=== PATIENT | male | born 1945 | race Caucasian/White ===

== ENCOUNTER 2022-03-02 09:25 | Inpatient (IN) ==
[2022-03-02] MEDS ORDERED: 0.9 % SODIUM CHLORIDE 1,000 ML IV ONE (10:31)
[2022-03-02 10:53] LABS: POC Calcium, Ionized 1.23 (1.16-1.32); POC Creatinine 1.6 (0.6-1.2); POC Potassium 4.2 (3.3-5.1)
--- NOTE | 2022-03-02 10:53 | XRay Report ---
INDICATION: sepsis TECHNIQUE: AP portable upright chest x-ray COMPARISON: Previous chest x-ray dated 04/23/2021 FINDINGS: Lungs:Right basilar pulmonary parenchymal infiltrate consistent with pneumonia. Follow-up radiographs recommended. Left lung is negative Heart, vascular:No significant cardiomegaly. Pulmonary vascularity is normal. No pulmonary edema or pulmonary congestion Mediastinum, clarke:No mediastinal widening. No hilar mass Pleura:No pleural fluid. No pleural-based mass or calcification Skeletal:Elevation of the right humeral head consistent with rotator cuff degeneration IMPRESSION: 1. Right basilar pulmonary parenchymal infiltrate consistent with pneumonia 2. Follow-up chest x-rays recommended Interpreted and Authenticated by: Dionicio Lofton 03/02/22
[2022-03-02] MEDS ORDERED: cefTRIAXone 1 GM VIAL IV ONE (10:55)
[2022-03-02] MEDS ORDERED: AZITHROMYCIN 250 MG TABLET PO ONE (10:56)
[2022-03-02 11:50] LABS: Basophils # (Auto) 0.03 K/mcL (0.00-0.30); Basophils % (Auto) 0.2 % (0.0-2.0); Eosinophils # (Auto) 0.01 K/mcL (0.00-0.70); Eosinophils % (Auto) 0.1 % (0.0-7.0); Hematocrit 34.2 % (40.1-51.0); Hemoglobin 12.1 g/dL (13.7-17.5); Lymphocytes # (Auto) 0.96 K/mcL (1.50-4.80); Lymphocytes % (Auto) 7.5 % (15.5-49.0); Mean Cell Volume 92.2 fL (80.0-100.0); Mean Corpuscular HGB Conc 35.4 g/dL (31.0-36.0); Mean Platelet Volume 9.2 fL (8.8-12.5); Monocytes # (Auto) 1.34 K/mcL (0.10-0.90); Monocytes % (Auto) 10.4 % (1.0-12.0); Neutrophils % (Auto) 79.7 % (38.0-78.0); Platelet Count 220 K/mcL (140-440); RBC 3.71 M/mcL (4.63-6.08); Red Cell Distribution Width 12.3 % (11.5-14.5); WBC 12.8 K/mcL (4.5-11.0)
--- NOTE | 2022-03-02 12:01 | Emergency Department Note ---
HPI General Chief complaint: Cold/Flu Symptoms Stated complaint: cold/flu sx Time Seen by Provider: 03/02/22 10:29 Source: patient and family Mode of arrival: wheelchair Limitations: no limitations History of Present Illness HPI Narrative: 76-year-old male patient with history of chronic UTIs and ileal conduit with ostomy bag for bladder cancer, COPD, T2DM, chronic low back pain, depression, lower extremity neuropathy presents for 4 days of weakness and cough. His influenza and COVID swabs are negative here today. Patient's also notes that he has had worsening chronic low back pain. He is taking gabapentin and hydrocodone for this, but it is not helpful. He was seen in [facility] care on 02/24 for suicidal ideations related to uncontrolled pain. He had to be evaluated at [facility] ER. He states he is currently not feeling suicidal now, but is very discouraged because of his pain. He also notes that he has had a 60-70lb pound weight loss over the past few months that has been unintentional. He does have some concerns for return of his bladder cancer. There was a CT scan on 12/05/2021 without evidence of new masses or metastases. The patient has been on multiple antibiotics for his chronic UTIs and has a history of C. difficile colitis. He currently is not endorsing excessive stooling now. He is not on antibiotics currently. He does have some mild abdominal pain associated with his ostomy. Patient has COPD at baseline is on multiple inhalers. He states that he has a chronic cough but it has worsened over the last few days. He has had virtually no appetite since . Previous urine culture data with Pseudomonas UTI on 12/11 sensitive to fluoroquinolones, E. coli on 12/25 resistant to fluoroquinolones. Related Data Home Medications Medication Instructions Recorded Confirmed insulin NPH isoph U-100 human 100 10 unit subcut BID 09/04/21 01/19/22 unit/mL (3 mL) subcutaneous pen (Novolin N Flexpen) Previous Rx's Medication Instructions Recorded pregabalin 50 mg capsule (Lyrica) 50 mg PO TID #21 caps 12/08/21 hydrocodone 7.5 mg-acetaminophen 1 tab PO Q8H PRN pain #30 tabs 12/25/21 325 mg tablet methocarbamol 500 mg tablet 500 mg PO Q6H PRN pain #30 tabs 01/19/22 Allergies Allergy/AdvReac Type Severity Reaction Status Date / Time aspirin Allergy Unknown Gastrointestinal Verified 12/08/21 10:02 hemorrhage atorvastatin Allergy Unknown Muscle Pain Verified 12/08/21 10:02 simvastatin Allergy Unknown Muscle pain Verified 12/08/21 10:02 ciprofloxacin AdvReac Intermediate myalgia Verified 12/08/21 10:02 Penicillins AdvReac Intermediate Rash Verified 12/08/21 10:02 Review of Systems ROS ROS Narrative: Narrative: All systems ED: reviewed and negative except as stated. [facility] Narrative Patient History Narrative: Narrative: Medical/Surgical/Family History All Active Problems (Updated 03/02/22 @ 13:07 by Nelly Macedo PA-C) Community acquired pneumonia (Acute) Medication requested (Acute) Chronic UTI (Acute) Back pain (Acute) Neural foraminal stenosis of lumbar spine (Acute) UTI (urinary tract infection) due to urinary indwelling catheter (Acute) Hypertension (Chronic) Emphysema lung (Chronic) Chronic pain (Chronic) Other low back pain (Chronic) Lumbar stenosis with neurogenic claudication (Chronic) Depression (Chronic) Anxiety (Chronic) Mixed hyperlipidemia (Chronic) Supraventricular tachycardia (Chronic) Obesity (Chronic) Neuropathy of both feet (Chronic) Malignant neoplasm of posterior wall of urinary bladder (Chronic) Inguinal hernia (Chronic) Elevated IOP (Chronic) 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) Chest pain on exertion (Chronic) Adenomatous polyp of colon (Chronic) Drug related polyneuropathy (Chronic) Chronic lumbar pain (Chronic) Hyperlipidemia (Chronic) COPD (chronic obstructive pulmonary disease) (Chronic) Benign essential hypertension (Chronic) Vertebrogenic low back pain (Chronic) Acute UTI (Chronic) Medical History Acute UTI Adenomatous polyp of colon Anxiety Benign essential hypertension Chest pain on exertion Chronic lumbar pain Chronic pain Combined form of senile cataract COPD (chronic obstructive pulmonary disease) Depression 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 Drug related polyneuropathy Elevated IOP Emphysema lung Hyperlipidemia Hypertension Inguinal hernia Lumbar stenosis with neurogenic claudication Malignant neoplasm of posterior wall of urinary bladder Mixed hyperlipidemia Neuropathy of both feet Obesity Other low back pain Supraventricular tachycardia Vertebrogenic low back pain Surgical History History of colonoscopy 02/13/16, 03/21/10 History of prostate surgery (~01/01/17) Artificial opening History of repair of inguinal hernia (~07/25/10) History of surgery (~06/14/17) removal of tunneled central venous catheter without subcutaneous port or pump-01/28/17 History of surgery (~06/03/17) Bypass Bilateral ureters to lleocutaneous endoscopic approach, Resection of bladder, Resection of pelvis lymphatic, Resection of prostate, Robotic Assisted procedure of trunk region History of surgery (~01/01/17) cytourethroscopy-12/17/16 Family History Nephew Diabetes Niece Diabetes Sister Diabetes Mother Stroke Father Alcohol abuse Social History Smoking Status: Former smoker and Never smoker Alcohol Intake Frequency: holiday/special occasion only Substance Use: former substance user and marijuana Exam Narrative Narrative: General: AOx3, NAD, nontoxic appearing. Pleasant and conversant. HEENT: PERRL, EOMI, normocephalic. Dry mucous membranes. Normal facies and normal dentition. Chest: Symmetric, no pain to palpation Respiratory: Lungs are rhonchorous throughout. No wheezes. No respiratory distress. Unlabored breathing. Heart: Regular rate and rhythm, no murmurs/clicks/rubs. Abdomen: Mild right lower quadrant discomfort, nondistended, abdomen is soft. Ostomy bag with mucus and rodri hematuria. Extremities: Warm and well perfused. No edema. DP 2+ bilaterally. No venous stasis. Neuro: No focal deficits. Cranial nerves II-XII grossly normal. Skin: Warm dry, no rashes or lesions, no cyanosis. Psych: Normal mood and affect Heme/Lymph: No abnormal bruising General Limitations: no limitations Course Course Course Narrative: 76-year-old male presents with weakness and worsening cough Reevaluation(s) Reevaluation #1: Obtain basic labs, chest x-ray, lactic acid, UA, blood cultures Reevaluation #2: Chest x-ray with right basilar infiltrate. CBC with a white count of 12,800 ne utrophil count of 10.22. Sodium is 128. Creatinine is up to 1.6 from baseline of 1.3. Patient has been given IV ceftriaxone and oral azithromycin. Of also given 1 L of fluids for his tachycardia. Vital Signs Vital signs: Vital Signs Temperature 98.0 F 03/02/22 09:28 Pulse Rate 125 H 03/02/22 09:28 Respiratory Rate 17 03/02/22 09:28 Blood Pressure 99/59 03/02/22 09:28 Pulse Oximetry (%) 92 03/02/22 09:28 Oxygen Delivery Method 03/02/22 09:28 Temperature 98.0 F 03/02/22 09:28 Pulse Rate 95 H 03/02/22 13:02 Respiratory Rate 23 H 03/02/22 13:02 Blood Pressure 99/59 03/02/22 09:28 Pulse Oximetry (%) 93 03/02/22 13:02 Oxygen Delivery Method 03/02/22 09:28 MDM MDM Narrative Medical decision making narrative: Community-acquired pneumonia Possible UTI Curb 65 score is 2 and he does meet SIRS criteria. He has evidence of a right basilar infiltrate. His COVID and influenza swabs are negative. He has been started on IV ceftriaxone and 500 mg oral azithromycin. Urinalysis is currently pending. At this point I believe he needs to be admitted for further management and IV antibiotics. He will need case management to evaluate for home caregiving needs when they are available tomorrow. The patient has been accepted by Dr. Coates for admission. Lab Data Result diagrams: 03/02/22 10:45 Labs: Lab Results 03/02/22 03/02/22 03/02/22 Range/Units 10:45 10:48 11:19 WBC 12.8 H (4.5-11.0) K/mcL RBC 3.71 L (4.63-6.08) M/mcL Hgb 12.1 L (13.7-17.5) g/dL Hct 34.2 L (40.1-51.0) % POC Hct 35.0 L (41-55) MCV 92.2 (80.0-100.0) fL MCH 32.6 (26.0-34.0) pg MCHC 35.4 (31.0-36.0) g/dL RDW 12.3 (11.5-14.5) % Plt Count 220 (140-440) K/mcL MPV 9.2 (8.8-12.5) fL Immature Gran % (Auto) 2.1 H (0.0-0.5) % Neut % (Auto) 79.7 H (38.0-78.0) % Lymph % (Auto) 7.5 L (15.5-49.0) % [place] % (Auto) 10.4 (1.0-12.0) % Eos % (Auto) 0.1 (0.0-7.0) % Baso % (Auto) 0.2 (0.0-2.0) % Lymph # (Auto) 0.96 L (1.50-4.80) K/mcL [place] # (Auto) 1.34 H (0.10-0.90) K/mcL Eos # (Auto) 0.01 (0.00-0.70) K/mcL Baso # (Auto) 0.03 (0.00-0.30) K/mcL Immature Gran # 0.27 H (0.00-0.05) K/mcl Absolute Neutrophils 10.22 H (1.80-8.00) K/mcL POC Sodium 128 L (133-145) POC Potassium 4.2 (3.3-5.1) POC Chloride 95 L (96-108) POC Total CO2 24.0 (22-30) POC BUN 32 H (6-20) POC Creatinine 1.6 H (0.6-1.2) POC Glucose 184 H (70-105) POC WB Ioniz Calcium 1.23 (1.16-1.32) Urine Color Dk. yellow Urine Appearance Cloudy A (Clear) Urine pH 6.0 (5.0-9.0) Ur Specific [place] 1.010 (1.000-1.035) Urine Protein Trace A (Negative) mg/dL Urine Glucose (UA) Negative (Negative) mg/dL Urine Ketones Trace A (Negative) mg/dL Urine Occult Blood Negative (Negative) ania/mcL Urine Nitrate Negative (Negative) Urine Bilirubin Negative (Negative) mg/dL Urine Urobilinogen Normal mg/dL Ur Leukocyte Esterase Negative (Negative) /uL Urine RBC 3 (0-3) /hpf Urine WBC 29 H (0-4) /hpf Ur Squamous Epith Cells 0 (0-4) /hpf Urine Bacteria Many A (0) /hpf Urine Mucus Few A (None) /hpf Ur Culture Indicated? yes ED POC Tests ED POC Tests: WILMER - Influenza A Negative WILMER - Influenza B Negative WILMER - SARS Antigen Negative Discharge Plan Patient/Caregiver Discharge Instructions Pt seen by MACHINE COREMAKER/PA only: Yes Clinical Impression: Community acquired pneumonia Patient Disposition: Xfer As Inpt ([facility]) Follow up with: Lorenzo Ruffin ARNP [Primary Care Provider] - Prescriptions: No Action Novolin N Flexpen 100 unit/mL (3 mL) insulin pen 10 unit subcut BID methocarbamol 500 mg tablet 500 mg PO Q6H PRN (Reason: pain) Qty: 30 0RF Rx Instructions: May take half tab if drowsiness occurs or only at night time. pregabalin [Lyrica] 50 mg capsule 50 mg PO TID Qty: 21 0RF hydrocodone-acetaminophen 7.5-325 mg tablet 1 tab PO Q8H PRN (Reason: pain) Qty: 30 0RF
[2022-03-02 12:59] LABS: Appearance,Urine CLOUDY (Clear); Bacteria,Urine MANY /hpf (0); Bilirubin,Urine Negative (Negative); Color,Urine DK. YELLOW; Culture Indicated,Urine yes; Glucose,Urine (UA) NEGATIVE (Negative); Ketones,Urine TRACE mg/dL (Negative); Leukocyte Esterase,Urine NEGATIVE /uL (Negative); Mucus,Urine FEW /hpf; Nitrate,Urine NEGATIVE (Negative); Protein,Urine TRACE mg/dL (Negative); Urine Blood NEGATIVE ery/mcL (Negative); Urine RBC 3 /hpf (0-3); Urine Squamous Epithelial Cell 0 /hpf (0-4); Urine WBC 29 /hpf (0-4); Urobilinogen,Urine Normal
--- NOTE | 2022-03-02 13:58 | Internal Med History&Physical ---
HPI History of Present Illness Patient information: Note initiated : 03/02/22 at 1:48 pm Service Date, if different from initiated Date: [] Patient: Contreras Mccloud 76 y/o M admitted on for cold/flu sx. Chief Complaint: [shortness of breath, weakness, weight loss, suprapubic abdominal pain, shaking chills] Chief complaint: shortness of breath, weakness, weight loss, suprapubic abdominal pain, bria History of present illness: Mr. Mccloud is a 76 year old M history of bladder cancer status post cystectomy and ileal conduit, COPD, type 2 diabetes mellitus, recurrent UTI, essential hypertension, presenting with 5-day history of general weakness, loss of appetite, nausea with vomiting, suprapubic abdominal pain, shortness of breath, productive cough with davey and green sputum productions, and shaking chills. Moreover, he is complaining of 60 pounds weight loss over the 3 years. He has not been follow-up with oncology since the diagnosis of his bladder cancer 3 years ago. Over the past 5 days, he is complain of worsening of general weakness, loss of appetite, nausea with vomiting, shortness of breath with productive cough with davey and green sputum productions, shaking chills, and suprapubic abdominal pain currently graded at 3 out of 10 burning and constant. Vital signs significant for tachycardia and tachypnea. Labs significant for leukocytosis with WBC 12.8. Sodium level 128. Serum creatinine level 1.6. UA does not suggest the presence of urinary tract infections. Chest x-ray showing right basilar pulmonary parenchymal infiltrate consistent with pneumonia. Admission request was called for sepsis associated with pneumonia as well as for the investigations of weight loss/ failure to thrive. Constitutional Constitutional: Present chills, weakness and weight loss; Absent excessive sweating, fatigue or fever(s) EENT Eyes: Absent blurry vision, change in vision, loss of vision or other visual disturbances Ears: Absent decreased hearing or tinnitus Nose, mouth and throat: Absent abnormal hearing, dry mouth, headache(s), nasal congestion or sore throat Cardiovascular Cardiovascular: Absent chest pain, chest pain at rest, edema, irregular heart rhythm or palpatations Respiratory Respiratory: Present cough, dyspnea and excessive phlegm production; Absent wheezing Gastrointestinal Gastrointestinal: Present abdominal pain, nausea and vomiting; Absent constipation or diarrhea Musculoskeletal Musculoskeletal: Absent back pain, deformity, limited range of motion, muscle cramps, muscle weakness or numbness Integumentary Integumentary: Absent lesions, rash or wounds Neurological Neurological: Absent focal weakness, headache(s) or numbness Psychiatric Psychiatric: Absent anxiety, depression or hallucinations PFSH PFSH All Active Problems (Updated 03/02/22 @ 13:57 by Flaco Coates MD) Stage 1 acute kidney injury (Acute) T2DM (type 2 diabetes mellitus) (Acute) Adult failure to thrive (Acute) Community acquired pneumonia (Acute) Medication requested (Acute) Chronic UTI (Acute) Back pain (Acute) Neural foraminal stenosis of lumbar spine (Acute) UTI (urinary tract infection) due to urinary indwelling catheter (Acute) Hypertension (Chronic) Emphysema lung (Chronic) Chronic pain (Chronic) Other low back pain (Chronic) Lumbar stenosis with neurogenic claudication (Chronic) Depression (Chronic) Anxiety (Chronic) Mixed hyperlipidemia (Chronic) Supraventricular tachycardia (Chronic) Obesity (Chronic) Neuropathy of both feet (Chronic) Malignant neoplasm of posterior wall of urinary bladder (Chronic) Inguinal hernia (Chronic) Elevated IOP (Chronic) 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) Chest pain on exertion (Chronic) Adenomatous polyp of colon (Chronic) Drug related polyneuropathy (Chronic) Chronic lumbar pain (Chronic) Hyperlipidemia (Chronic) COPD (chronic obstructive pulmonary disease) (Chronic) Benign essential hypertension (Chronic) Vertebrogenic low back pain (Chronic) Acute UTI (Chronic) Medical History Acute UTI Adenomatous polyp of colon Anxiety Benign essential hypertension Chest pain on exertion Chronic lumbar pain Chronic pain Combined form of senile cataract COPD (chronic obstructive pulmonary disease) Depression 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 Drug related polyneuropathy Elevated IOP Emphysema lung Hyperlipidemia Hypertension Inguinal hernia Lumbar stenosis with neurogenic claudication Malignant neoplasm of posterior wall of urinary bladder Mixed hyperlipidemia Neuropathy of both feet Obesity Other low back pain Supraventricular tachycardia Vertebrogenic low back pain Surgical History History of colonoscopy 02/13/16, 03/21/10 History of prostate surgery (~01/01/17) Artificial opening History of repair of inguinal hernia (~07/25/10) History of surgery (~06/14/17) removal of tunneled central venous catheter without subcutaneous port or pump-01/28/17 History of surgery (~06/03/17) Bypass Bilateral ureters to lleocutaneous endoscopic approach, Resection of b ladder, Resection of pelvis lymphatic, Resection of prostate, Robotic Assisted procedure of trunk region History of surgery (~01/01/17) cytourethroscopy-12/17/16 Family History Nephew Diabetes Niece Diabetes Sister Diabetes Mother Stroke Father Alcohol abuse Social History household members: alone housing: house marital status: education level: high school 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 smoking status: Former smoker and Never smoker alcohol intake frequency: holiday/special occasion only substance use type: former substance user and marijuana MEDS/ALLERGIES Home Medications and Allergies Home Medications Medication Instructions Recorded Confirmed Type insulin NPH isoph U-100 human 100 10 unit subcut BID 09/04/21 01/19/22 History unit/mL (3 mL) subcutaneous pen (Novolin N Flexpen) pregabalin 50 mg capsule (Lyrica) 50 mg PO TID #21 caps 12/08/21 01/19/22 Rx hydrocodone 7.5 mg-acetaminophen 1 tab PO Q8H PRN pain #30 tabs 12/25/21 01/19/22 Rx 325 mg tablet methocarbamol 500 mg tablet 500 mg PO Q6H PRN pain #30 tabs 01/19/22 01/19/22 Rx Allergies Allergy/AdvReac Type Severity Reaction Status Date / Time aspirin Allergy Unknown Gastrointestinal Verified 12/08/21 10:02 hemorrhage atorvastatin Allergy Unknown Muscle Pain Verified 12/08/21 10:02 simvastatin Allergy Unknown Muscle pain Verified 12/08/21 10:02 ciprofloxacin AdvReac Intermediate myalgia Verified 12/08/21 10:02 Penicillins AdvReac Intermediate Rash Verified 12/08/21 10:02 EXAM Constitutional Vitals: Temp Pulse Resp BP Pulse Ox O2 Del Method 36.7 C 114 H 15 116/71 93 03/02/22 09:28 03/02/22 13:16 03/02/22 13:16 03/02/22 13:16 03/02/22 13:16 03/02/22 09:28 General appearance: cooperative, mild distress and thin Exam: cachectic Head Head exam: Present atraumatic and normocephalic Eye Eye exam: Present EOMI and PERRL ENT ENT exam: Present mucous membranes moist, normal exam and normal external ear exam Neck Neck exam: Present normal inspection; Absent lymphadenopathy, tenderness or thyromegaly Respiratory Respiratory exam: Absent accessory muscle use, respiratory distress or wheezes Cardiovascular Cardiovascular exam: Present normal rate and rhythm; Absent JVD GI/Abdominal GI/Abdominal exam: Present normal bowel sounds, soft and tenderness; Absent organomegaly Additional comments: ileal conduit Rectal Rectal exam: Present deferred Additional comments: ileal conduit Extremities Exam Extremities exam: Present full ROM, normal capillary refill and normal inspection; Absent tenderness Neurological Exam Neurological exam: Present alert, CN II-XII intact and oriented X3; Absent motor sensory deficit Psychiatric Psychiatric exam: Present normal affect and normal mood; Absent anxious or depressed Skin Skin exam: Present dry and intact DATA Data Completed and Pending Labs: Labs from last 24 hours 03/02/22 03/02/22 03/02/22 11:19 10:48 10:45 WBC 12.8 H RBC 3.71 L Hgb 12.1 L Hct 34.2 L POC Hct 35.0 L MCV 92.2 MCH 32.6 MCHC 35.4 RDW 12.3 Plt Count 220 MPV 9.2 Immature Gran % (Auto) 2.1 H Neut % (Auto) 79.7 H Lymph % (Auto) 7.5 L [place] % (Auto) 10.4 Eos % (Auto) 0.1 Baso % (Auto) 0.2 Lymph # (Auto) 0.96 L [place] # (Auto) 1.34 H Eos # (Auto) 0.01 Baso # (Auto) 0.03 Immature Gran # 0.27 H Absolute Neutrophils 10.22 H POC Sodium 128 L POC Potassium 4.2 POC Chloride 95 L POC Total CO2 24.0 POC BUN 32 H POC Creatinine 1.6 H POC Glucose 184 H POC WB Ioniz Calcium 1.23 Urine Color Dk. yellow Urine Appearance Cloudy A Urine pH 6.0 Ur Specific [place] 1.010 Urine Protein Trace A Urine Glucose (UA) Negative Urine Ketones Trace A Urine Occult Blood Negative Urine Nitrate Negative Urine Bilirubin Negative Urine Urobilinogen Normal Ur Leukocyte Esterase Negative Urine RBC 3 Urine WBC 29 H Ur Squamous Epith Cells 0 Urine Bacteria Many A Urine Mucus Few A Ur Culture Indicated? yes A/P Assessment and plan (1) Adult failure to thrive: Status: Acute (2) Community acquired pneumonia: Status: Acute (3) Hypertension: Status: Chronic (4) Malignant neoplasm of posterior wall of urinary bladder: Status: Chronic (5) COPD (chronic obstructive pulmonary disease): Status: Chronic (6) T2DM (type 2 diabetes mellitus): Status: Acute (7) Stage 1 acute kidney injury: Status: Acute Narrative A/P Narrative: Assessment and Plans: 1. Pneumonia with sepsis: Inpatient med surg s/p IV fluid bolus given in the ED, to be followed by NS@100cc/hr Serial lactic acid Procalcitonin Cephein PCR Blood culture MRSA screening cbc w/ auto diff in the morning to trend WBC Supplemental oxygen therapy Due to history of recurrent UTI, will broaden antibiotics coverage with Vancomycin and Zosyn 2. Adult failure to thrive: DDx include malignancy, new versus unresolved bladder cancer Ideally would like to preformed whole-body CT with IV contrast but due to concurrent acute kidney injury, with deferred until kidney functions improved Front Desk Officer referral 3. h/o Essential hypertension: Currently normotensive, continue to monitor 4. h/o bladder cancer: Ideally would like to preformed whole-body CT with IV contrast but due to concurrent acute kidney injury, with deferred until kidney functions improved Outpatient oncology follow up indicated 5. Type 2 diabetes mellitus: HgA1c Hold any oral hypoglycemics Insulin NPH 10 unit BID Low dose Insulin Lispro SSI AC HS Accu Check AC HS Hypoglycemia protocol Diabetic diet 6. h/o COPD, stable: DuoNEB NEB PRN wheezing or shortness of breath 7. Stage 1 acute kidney disease: Avoid nephrotoxic agents s/p IV fluid bolus given in the ED, to be followed by NS@100cc/hr CMP in the morning to trend kidney functions GI ppx: not currently indicated DVT ppx: Heparin Code status: Full Prognosis: guarded Disposition: inpatient med surg; PT OT Time Spent With Patient Time: Total time spent is greater than 50% in coordination of care (as documented) at patient's floor/unit and/or counseling patient: Total time spent with greater than 50% in coordination of care (as documented) at patient's floor/unit and/or counseling patient:: 50 - 70 minutes
[2022-03-02] MEDS ORDERED: PIPERACILLIN SODIUM/TAZOBACTAM 3.375 GM in DEXTROSE 5% IN WATER 50 ML IV SCH (14:31)
[2022-03-02] MEDS ORDERED: traZODone HCL 50 MG TABLET PO PRN (14:31)
[2022-03-02] MEDS ORDERED: ONDANSETRON 4 MG/2 ML VIAL IV PRN (14:31)
[2022-03-02] MEDS ORDERED: ACETAMINOPHEN 325 MG TABLET PO PRN (14:31)
[2022-03-02] MEDS ORDERED: DEXTROSE 50% 50 ML VIAL IV PRN (14:31)
[2022-03-02] MEDS ORDERED: VANCOMYCIN PER PHARMACY IV SCH (14:31)
[2022-03-02] MEDS ORDERED: IPRATROPIUM/ALBUTEROL 3 ML AMPUL.NEB NEB PRN (14:31)
[2022-03-02] MEDS ORDERED: DEXTROSE 31 GM ORAL.SUSP PO PRN (14:31)
[2022-03-02] MEDS: 0.9 % SODIUM CHLORIDE 1,000 ML IV SCH ×2 (15:20→23:50)
[2022-03-02] MEDS: VANCOMYCIN 1,500 MG in 0.9 % SODIUM CHLORIDE 500 ML IV SCH (15:20)
[2022-03-02] MEDS: 0.9 % SODIUM CHLORIDE 10 ML SYRINGE IV SCH ×2 (15:20→21:29)
[2022-03-02] MEDS: CEFEPIME 2 GM VIAL IV SCH ×2 (15:20→23:49)
[2022-03-02] MEDS: INSULIN LISPRO 1 UNIT/0.01 ML UNIT SQ SCH ×2 (17:07→20:10)
[2022-03-02 17:22] LABS: Estimated Average Glucose(eAG) 128 mg/dL; Hemoglobin A1C 6.1 % Hgb (4.0-6.0)
[2022-03-02] MEDS: morphine 4 MG/ML VIAL IV PRN (18:58)
[2022-03-02] MEDS: DOCUSATE SODIUM 100 MG CAPSULE PO SCH (19:58)
[2022-03-02] MEDS: SENNOSIDES 1 TABLET PO SCH (19:58)
[2022-03-02] MEDS: HEPARIN 5,000 UNIT/ML VIAL SQ SCH (19:59)
[2022-03-02] MEDS ORDERED: INSULIN NPH ISOPH U HUMAN SUB-Q SCH (21:00)
[2022-03-02] MEDS: PREGABALIN 25 MG CAPSULE PO SCH (21:23)
[2022-03-02] MEDS: HYDROCODONE/APAP 7.5/325MG TABLET PO PRN (21:27)
[2022-03-03] MEDS: 0.9 % SODIUM CHLORIDE 1,000 ML IV SCH ×3 (03:31→19:04)
[2022-03-03] MEDS: METHOCARBAMOL 500 MG TABLET PO PRN (03:36)
[2022-03-03] MEDS: 0.9 % SODIUM CHLORIDE 10 ML SYRINGE IV SCH ×3 (06:04→20:48)
[2022-03-03 07:37] LABS: Basophils # (Auto) 0.02 K/mcL (0.00-0.30); Basophils % (Auto) 0.2 % (0.0-2.0); Eosinophils # (Auto) 0.03 K/mcL (0.00-0.70); Eosinophils % (Auto) 0.3 % (0.0-7.0); Hematocrit 31.1 % (40.1-51.0); Hemoglobin 10.7 g/dL (13.7-17.5); Lymphocytes # (Auto) 0.85 K/mcL (1.50-4.80); Lymphocytes % (Auto) 8.3 % (15.5-49.0); Mean Cell Volume 93.7 fL (80.0-100.0); Mean Corpuscular HGB Conc 34.4 g/dL (31.0-36.0); Mean Platelet Volume 9.4 fL (8.8-12.5); Monocytes # (Auto) 0.84 K/mcL (0.10-0.90); Monocytes % (Auto) 8.2 % (1.0-12.0); Neutrophils % (Auto) 80.8 % (38.0-78.0); Platelet Count 208 K/mcL (140-440); RBC 3.32 M/mcL (4.63-6.08); Red Cell Distribution Width 12.1 % (11.5-14.5); WBC 10.2 K/mcL (4.5-11.0)
[2022-03-03 07:53] LABS: ALT/SGPT 7 U/L (<40); AST/SGOT 10 U/L (<40); Albumin 2.8 gm/dL (3.2-5.2); Albumin/Globulin Ratio 0.8 (1.0-2.3); Alkaline Phosphatase 93 U/L (39-117); Bilirubin,Total 0.7 mg/dL (0.1-1.0); Blood Urea Nitrogen 16 mg/dL (8-23); Calcium 8.8 mg/dL (8.6-10.4); Carbon Dioxide 20 mmol/L (22-30); Chloride 95 mmol/L (96-108); Globulin 3.3 gm/dL (2.2-3.7); Glomerular Filtration Rate 86; Glucose 119 mg/dL (70-105)
[2022-03-03] MEDS: INSULIN LISPRO 1 UNIT/0.01 ML UNIT SQ SCH ×4 (07:53→20:47)
[2022-03-03] MEDS: PREGABALIN 25 MG CAPSULE PO SCH ×3 (08:43→20:47)
[2022-03-03] MEDS: guaiFENesin/DEXTROMETHORPHAN ORAL SOL PO PRN (08:43)
[2022-03-03] MEDS: DOCUSATE SODIUM 100 MG CAPSULE PO SCH ×2 (08:43→20:46)
[2022-03-03] MEDS: HYDROCODONE/APAP 7.5/325MG TABLET PO PRN ×3 (08:44→22:29)
[2022-03-03] MEDS: HEPARIN 5,000 UNIT/ML VIAL SQ SCH ×2 (08:45→20:47)
[2022-03-03] MEDS: CEFEPIME 2 GM VIAL IV SCH ×2 (08:45→20:46)
[2022-03-03] MEDS: VANCOMYCIN 1,500 MG in 0.9 % SODIUM CHLORIDE 500 ML IV SCH (11:02)
--- NOTE | 2022-03-03 12:35 | Internal Med Progress Note ---
SUBJECTIVE Subjective Patient information: Note initiated : 03/03/22 at 12:27 pm Service Date, if different from initiated Date: [] Patient: Contreras Mccloud 76 y/o M admitted on 03/02/22 for cold/flu sx. Chief Complaint: [] Interval history: Mr. Mccloud is a 76 year old M history of bladder cancer status post cystectomy and ileal conduit, COPD, type 2 diabetes mellitus, recurrent UTI, essential hypertension, presenting with 5-day history of general weakness, loss of appetite, nausea with vomiting, suprapubic abdominal pain, shortness of breath, productive cough with davey and green sputum productions, and shaking chills. Moreover, he is complaining of 60 pounds weight loss over the 3 years. He has not been follow-up with oncology since the diagnosis of his bladder cancer 3 years ago. Over the past 5 days, he is complain of worsening of general weakness, loss of appetite, nausea with vomiting, shortness of breath with productive cough with davey and green sputum productions, shaking chills, and suprapubic abdominal pain currently graded at 3 out of 10 burning and constant. Vital signs significant for tachycardia and tachypnea. Labs significant for leukocytosis with WBC 12.8. Sodium level 128. Serum creatinine level 1.6. UA does not suggest the presence of urinary tract infections. Chest x-ray showing right basilar pulmonary parenchymal infiltrate consistent with pneumonia. Admission request was called for sepsis associated with pneumonia as well as for the investigations of weight loss/ failure to thrive. 03/03: COVID-negative. RSV positive. MRSA screening negative. Blood culture no growth today. Serum creatinine level improved from 1.6-0.8. Patient is on room air. Patient has poor appetite. He is also commenting of back pain. He denies any abdominal pain around the ileal conduit site. He denies any subjective fever chills or diaphoresis. DC vancomycin due to negative MRSA. Continue Zosyn while waiting for culture result. Since kidney functions normalized, will order whole-body CT with contr ast to look for any sign of malignancy contributing to the unintentional weight loss and overall weakness. We will keep the IV fluid running for now due to poor oral intake as well as CT study with IV contrast. Physical and occupational therapies evaluation and treatments. Constitutional Vitals: Vital Signs Temp Pulse Resp BP Pulse Ox O2 Del Method 36.9 C 113 H 20 116/66 94 03/03/22 08:00 03/03/22 08:00 03/03/22 08:00 03/03/22 08:00 03/03/22 08:00 03/03/22 08:00 Period Temp Pulse Resp BP Sys/Wilson Pulse Ox O2 Del Method O2 Flow Rate Last 24 Hr 36.5 C-37.2 C 91-121 15-24 104-150/65-84 91-96 Room Air-Room Air Intake and Output 03/03/22 03/03/22 03/03/22 03:59 11:59 19:59 Intake Total 1300 120 Output Total 625 200 Balance 675 -80 Intake & Output: Intake & Output 03/03/22 03/03/22 03/03/22 03:59 11:59 19:59 Intake Total 1300 120 Output Total 625 200 Balance 675 -80 Intake: IV 1000 Sodium Chloride 0.9% 1,000 ml @ 1000 100 mls/hr IV .Q10H [facility] Rx#: [id number] Oral 300 120 Output: Urine Catheter Amount 625 200 Other: Meal Breakfast Percent of Meal Consumed 50% Feeding Ability Assist with Tray Set Up Urine Appearance Cloudy Sediment Urine Color Yellow Light Trinh Urine Odor Foul Strong General appearance: cooperative, no acute distress and thin Head Head exam: Present atraumatic and normal inspection Eye Eye exam: Present normal appearance ENT ENT exam: Present mucous membranes moist, normal exam and normal external ear exam Neck Neck exam: Present normal inspection Respiratory Respiratory exam: Present normal respiratory exam Cardiovascular Cardiovascular exam: Present normal rate and rhythm GI/Abdominal GI/Abdominal exam: Present normal bowel sounds Additional comments: Ileal conduit in place Back Exam Back exam: Present normal inspection Neurological Exam Neurological exam: Present alert and oriented X3 Skin Skin exam: Present intact and warm OBJ DATA Labs CBC & Chem 7: 03/03/22 05:33 03/03/22 05:33 Labs: Abnormal Lab Results 03/03/22 03/03/22 03/02/22 05:33 05:33 15:01 WBC RBC 3.32 L Hgb 10.7 L Hct 31.1 L POC Hct Immature Gran % (Auto) 2.2 H Neut % (Auto) 80.8 H Lymph % (Auto) 8.3 L Lymph # (Auto) 0.85 L Pratt # (Auto) Immature Gran # 0.22 H Absolute Neutrophils 8.23 H POC Sodium Sodium 128 L POC Chloride Chloride 95 L Carbon Dioxide 20 L POC BUN POC Creatinine Glucose 119 H POC Glucose Hemoglobin A1c Albumin 2.8 L Albumin/Globulin Ratio 0.8 L Procalcitonin 0.52 H Urine Appearance Urine Protein Urine Ketones Urine WBC Urine Bacteria Urine Mucus 03/02/22 03/02/22 03/02/22 15:01 11:19 10:48 WBC RBC Hgb Hct POC Hct 35.0 L Immature Gran % (Auto) Neut % (Auto) Lymph % (Auto) Lymph # (Auto) Pratt # (Auto) Immature Gran # Absolute Neutrophils POC Sodium 128 L Sodium POC Chloride 95 L Chloride Carbon Dioxide POC BUN 32 H POC Creatinine 1.6 H Glucose POC Glucose 184 H Hemoglobin A1c 6.1 H Albumin Albumin/Globulin Ratio Procalcitonin Urine Appearance Cloudy A Urine Protein Trace A Urine Ketones Trace A Urine WBC 29 H Urine Bacteria Many A Urine Mucus Few A 03/02/22 10:45 WBC 12.8 H RBC 3.71 L Hgb 12.1 L Hct 34.2 L POC Hct Immature Gran % (Auto) 2.1 H Neut % (Auto) 79.7 H Lymph % (Auto) 7.5 L Lymph # (Auto) 0.96 L Pratt # (Auto) 1.34 H Immature Gran # 0.27 H Absolute Neutrophils 10.22 H POC Sodium Sodium POC Chloride Chloride Carbon Dioxide POC BUN POC Creatinine Glucose POC Glucose Hemoglobin A1c Albumin Albumin/Globulin Ratio Procalcitonin Urine Appearance Urine Protein Urine Ketones Urine WBC Urine Bacteria Urine Mucus Meds: Medications Acetaminophen (Acetaminophen 325 Mg Tablet) 650 mg PO Q6HP PRN; Protocol PRN Reason: Per Pain Protocol/Fever > 101 Last Admin: 03/02/22 19:58 Dose: 650 mg Hydrocodone Bitart/Acetaminophen (Hydrocodone/Apap 7.5/325mg Tablet) 1 tab PO Q8HP PRN PRN Reason: pain Last Admin: 03/03/22 08:44 Dose: 1 tab Albuterol/Ipratropium (Ipratropium/Albuterol 3 Ml Ampul.Neb) 3 ml NEB Q4HRT PRN PRN Reason: Wheezing Cefepime HCl (Cefepime 2 Gm Vial) 2 gm IV Q12H PRUDENCIO Last Admin: 03/03/22 08:45 Dose: 2 gm Dextrose (Dextrose 50% 50 Ml Vial) 0 ml IV UD PRN PRN Reason: Per Sliding Scale Diagnostic Test (Pha) (Accu-Chek 1 Each Strip) 1 each FS ACHS [facility] Last Admin: 03/03/22 07:47 Dose: 1 each Docusate Sodium (Docusate Sodium 100 Mg Capsule) 100 mg PO BID [facility] Last Admin: 03/03/22 08:43 Dose: 100 mg Glucose (Dextrose 31 Gm Oral.Susp) 15 gm PO PRN PRN PRN Reason: Hypoglycemia Guaifenesin (Guaifenesin/Dextromethorphan Oral Naomi) 10 ml PO Q4HP PRN PRN Reason: Cough Last Admin: 03/03/22 08:43 Dose: 10 ml Heparin Sodium (Porcine) (Heparin 5,000 Unit/Ml Vial) 5,000 unit SQ Q12 [facility] Last Admin: 03/03/22 08:45 Dose: 5,000 unit Sodium Chloride (Sodium Chloride 0.9%) 1,000 mls @ 100 mls/hr IV .Q10H [facility] Last Admin: 03/03/22 03:31 Dose: 100 mls/hr Insulin Human Lispro (Insulin Lispro 1 Unit/0.01 Ml Unit) 0 unit SQ [facility]; Protocol Last Admin: 03/03/22 07:53 Dose: 1 units Methocarbamol (Methocarbamol 500 Mg Tablet) 500 mg PO Q6HP PRN PRN Reason: pain Last Admin: 03/03/22 03:36 Dose: 500 mg Morphine Sulfate (Morphine 4 Mg/Ml Vial) 4 mg IV Q4HP PRN; Protocol PRN Reason: Per Pain Protocol Last Admin: 03/02/22 18:58 Dose: 4 mg Ondansetron HCl (Ondansetron 4 Mg/2 Ml Vial) 4 mg IV Q6HP PRN PRN Reason: Nausea And Vomiting Last Admin: 03/03/22 03:44 Dose: 4 mg Pregabalin (Pregabalin 25 Mg Capsule) 50 mg PO TID [facility] Last Admin: 03/03/22 08:43 Dose: 50 mg Senna (Sennosides 1 Tablet) 2 tab PO HS [facility] Last Admin: 03/02/22 19:58 Dose: 2 tab Sodium Chloride (0.9 % Sodium Chloride 10 Ml Syringe) 10 ml IV Q8 [facility] Last Admin: 03/03/22 06:04 Dose: Not Given Trazodone HCl (Trazodone Hcl 50 Mg Tablet) 25 mg PO HSP PRN PRN Reason: Insomnia A/P Assessment and plan (1) Adult failure to thrive: Status: Acute (2) Community acquired pneumonia: Status: Acute (3) Hypertension: Status: Chronic (4) Malignant neoplasm of posterior wall of urinary bladder: Status: Chronic (5) COPD (chronic obstructive pulmonary disease): Status: Chronic (6) T2DM (type 2 diabetes mellitus): Status: Acute (7) Stage 1 acute kidney injury: Status: Acute (8) RSV (respiratory syncytial virus infection): Status: Acute Narrative A/P Narrative: Assessment and Plans: 1. Pneumonia with sepsis: Inpatient med surg s/p IV fluid bolus given in the ED, to be followed by NS@100cc/hr Serial lactic acid 1.5 Procalcitonin 0.52 Cephein PCR: CoVID negative, RSV positive Blood culture, no growth to date MRSA screening negative, d/c vancomycin cbc w/ auto diff in the morning to trend WBC Supplemental oxygen therapy Continue Cefepime while monitoring for culture results 2. Adult failure to thrive: DDx include malignancy, new versus unresolved bladder cancer Whole-body CT with IV contrast [employer] referral 3. h/o Essential hypertension: Currently normotensive, continue to monitor 4. h/o bladder cancer: Whole-body CT with IV contrast Outpatient oncology follow up indicated 5. Type 2 diabetes mellitus: HgA1c 6.1 Hold any oral hypoglycemics d/c Insulin NPH Low dose Insulin Lispro SSI AC HS Accu Check AC HS Hypoglycemia protocol Diabetic diet 6. h/o COPD, stable: DuoNEB NEB PRN wheezing or shortness of breath 7. Stage 1 acute kidney disease: Kidney functions improved Avoid nephrotoxic agents s/p IV fluid bolus given in the ED, to be followed by NS@100cc/hr. Continue due to poor oral intake and ordered CT whole body with IV contrast CMP in the morning to trend kidney functions 8. RSV infection: Isolation: droplet Supplemental oxygen therapy GI ppx: not currently indicated DVT ppx: Lovenox Code status: Full Prognosis: guarded Disposition: inpatient med surg; PT OT Time Spent With Patient Time: Total time spent is greater than 50% in coordination of care (as documented) at patient's floor/unit and/or counseling patient: Total time spent with greater than 50% in coordination of care (as documented) at patient's floor/unit and/or counseling patient:: 25 - 35 minutes QUALITY Stroke Symptom Onset Unknown: No VTE Deep Vein Thrombosis/Pulmonary Embolism Present on Admission: No
[2022-03-03] MEDS ORDERED: IOPAMIDOL 100 ML BOTTLE IV ONE (13:06)
--- NOTE | 2022-03-03 13:38 | Cat Scan Report ---
INDICATION: cancer surveillance. History of bladder cancer. Weight loss and failure to thrive TECHNIQUE: Axial images through the brain. Sagittal and coronal reformatted images. Scans performed before and after 80 mL intravenous contrast material COMPARISON: None. FINDINGS: No focal intra-axial attenuation abnormalities. No intra-axial enhancement. No evidence for brain metastases. There is mild cerebral atrophy considered age appropriate. There are bilateral thalamic lacunar infarctions. Brainstem and cerebellum are negative. No focal intra-axial attenuation abnormalities. No pathologic contrast enhancement. No extra-axial, intracranial abnormalities. No extra-axial enhancement. No pathologic leptomeningeal or dural enhancement. No calvarial lesions. No lytic or sclerotic abnormalities. No evidence for osseous metastases. Temporal bones are within normal limits. There is inflammatory disease in the paranasal sinuses. There are air-fluid levels within both maxillary sinuses consistent with acute maxillary sinusitis. There is mucosal thickening within anterior and posterior ethmoid sinuses bilaterally. Frontal sinuses are negative IMPRESSION: 1. No intracranial metastases. No enhancing abnormality 2. No calvarial lesions 3. Sinusitis. Air-fluid levels within both maxillary sinuses. Interpreted and Authenticated by: Dionicio Lofton 03/03/22
--- NOTE | 2022-03-03 14:00 | Cat Scan Report ---
INDICATION: cancer surveillance. History of bladder cancer. Patient has undergone previous cystectomy and construction of ileal conduit COMPARISON: Previous abdominal and pelvic CT scans dated 12/05/2021, 09/16/2021. Previous chest x-ray dated 03/02/2022 TECHNIQUE: Axial images were obtained through the chest,abdomen and pelvis. Sagittally and coronally reformatted images. 80ml Isovue 370 injected intravenously. Oral contrast material was not administered FINDINGS: Chest CT: Lungs:Mild infiltrate in the left lower lobe is predominantly tree in bud in appearance. Appearance is consistent with acute infection. No parenchymal consolidation. There is no left lung mass. No evidence for metastasis. There is peribronchial thickening consistent with bronchitis. Extensive abnormality in the right lower lobe and mild abnormality in the right middle lobe. There is parenchymal infiltrate which is predominantly tree-in-bud and groundglass. Appearance is most consistent with infection. Appearance is considered atypical for metastasis from bladder cancer. Follow-up examination recommended. There is peribronchial thickening consistent with bronchitis. Mediastinum:Mild mediastinal adenopathy. Largest lymph node is pretracheal and measures 19 mm. There is central fat. This is probably physiological reactive. Bridgette are negative. No pathologic adenopathy. Heart:No significant cardiomegaly. No pericardial effusion. There is severe coronary artery calcification Pleura:No pleural fluid. No pleural-based mass. No pleural calcifications Axilla, supraclavicular regions, chest wall:No pathologic axillary or supraclavicular adenopathy Musculoskeletal:Mild compression deformity of the T7 vertebral body. No evidence for pathologic compression fracture. There are no lytic or sclerotic lesions within the thoracic spine. Sternum is negative. Ribs are negative. No sclerotic or lytic lesions. No evidence for osseous metastases. Shoulder girdles are unremarkable. Abdomen/Pelvis: Liver:Negative liver. No focal intrahepatic mass. Liver contour is smooth. There is no ascites Gallbladder, bilary:3 mm calcified gallstone in the gallbladder neck. No gallbladder wall thickening or pericholecystic fluid. No dilated bile ducts. This is unchanged Spleen:No splenomegaly. No focal intrasplenic abnormality. Normal enhancement of splenic and portal veins. Pancreas:No pancreatic mass. No peripancreatic abnormality Adrenal glands:Negative Kidneys,ureters,bladder:No solid renal mass. No hydronephrosis. No obstructing or nonobstructing calculi. Previous cystectomy. There is an ileal conduit with right lower quadrant ostomy. There is no hydroureter. Gastrointestinal:Distended rectum with prominent fecal material. There is prominent fecal material throughout the colon consistent with constipation There is no detectable colonic mass. No evidence for diverticulitis. Urinary diversion procedure with ileal conduit right lower quadrant ostomy. There is no mechanical small bowel obstruction. Stomach is moderately distended and fluid-filled Appendix: The appendix is negative Vascular:Abdominal aorta is calcified and tortuous. No abdominal aortic aneurysm Lymphatic:No pathologic adenopathy. No iliac chain or para-aortic adenopathy. No inguinal adenopathy. Mesentery, peritoneum:No free intraperitoneal fluid. No intra-abdominal abscess. There is no pathologic mesenteric adenopathy or peritoneal based metastasis Reproductive:No significant prosthetic enlargement Musculoskeletal:Multilevel degenerative disc disease. Severe degenerative disc narrowing at L1-2, L2-3, L3-4, L4-5. There is facet arthropathy at L3-4, L4-5, L5-S1. No acute compression fractures. No lytic or sclerotic lesions. No evidence for osseous metastases. Sacrum is negative. No metastatic lesion. Pelvis is negative. Hips are negative. There is no anterior abdominal wall or inguinal hernia IMPRESSION: 1. Predominantly right lower lobe and right middle lobe infiltrate consistent with infection. Appearance is atypical for metastatic disease. Follow-up examination recommended. 2. Coronary artery calcification 3. Cholelithiasis 4. Previous cystectomy. Urinary diversion with ileal conduit destruction in right lower quadrant ostomy. No hydronephrosis or hydroureter 5. No pathologic retroperitoneal adenopathy 6. Multilevel degenerative disc disease in the lumbar spine. Mild compression deformity of the T7 vertebral body. No detectable osseous metastases 7. Constipation The exam was performed using radiation dose optimization techniques including, but not limited to, automated exposure control, adjustment of the mA and/or kV according to patient size and use of iterative reconstruction technique. Interpreted and Authenticated by: Dionicio Lofton 03/03/22
[2022-03-03] MEDS: SENNOSIDES 1 TABLET PO SCH (20:46)
[2022-03-04] MEDS: morphine 4 MG/ML VIAL IV PRN ×2 (00:27→04:41)
[2022-03-04] MEDS: 0.9 % SODIUM CHLORIDE 1,000 ML IV SCH (04:40)
[2022-03-04] MEDS: 0.9 % SODIUM CHLORIDE 10 ML SYRINGE IV SCH ×3 (05:05→22:06)
[2022-03-04 06:54] LABS: Basophils # (Auto) 0.02 K/mcL (0.00-0.30); Basophils % (Auto) 0.3 % (0.0-2.0); Eosinophils # (Auto) 0.05 K/mcL (0.00-0.70); Eosinophils % (Auto) 0.7 % (0.0-7.0); Hematocrit 29.7 % (40.1-51.0); Hemoglobin 10.4 g/dL (13.7-17.5); Lymphocytes # (Auto) 0.92 K/mcL (1.50-4.80); Lymphocytes % (Auto) 13.2 % (15.5-49.0); Mean Cell Volume 92.2 fL (80.0-100.0); Mean Platelet Volume 9.3 fL (8.8-12.5); Monocytes % (Auto) 8.6 % (1.0-12.0); Neutrophils % (Auto) 73.6 % (38.0-78.0); Platelet Count 213 K/mcL (140-440); RBC 3.22 M/mcL (4.63-6.08)
[2022-03-04] MEDS: INSULIN LISPRO 1 UNIT/0.01 ML UNIT SQ SCH ×4 (07:22→22:05)
[2022-03-04] MEDS: guaiFENesin/DEXTROMETHORPHAN ORAL SOL PO PRN ×2 (07:31→11:47)
[2022-03-04] MEDS: HYDROCODONE/APAP 7.5/325MG TABLET PO PRN ×3 (07:43→22:03)
[2022-03-04] MEDS: PREGABALIN 25 MG CAPSULE PO SCH ×3 (08:47→22:03)
[2022-03-04] MEDS: HEPARIN 5,000 UNIT/ML VIAL SQ SCH (08:48)
[2022-03-04] MEDS: DOCUSATE SODIUM 100 MG CAPSULE PO SCH ×2 (08:48→22:05)
[2022-03-04] MEDS: CEFEPIME 2 GM VIAL IV SCH ×2 (09:53→22:05)
[2022-03-04] MEDS ORDERED: FLEETS ADULT ENEMA PR PRN (11:24)
[2022-03-04] MEDS ORDERED: BISACODYL 10 MG SUPP.RECT PR PRN (11:24)
[2022-03-04] MEDS ORDERED: POLYETHYLENE GLYCOL 3350 17 GM PACKET PO PRN (11:24)
--- NOTE | 2022-03-04 11:26 | Internal Med Progress Note ---
SUBJECTIVE Subjective Patient information: Note initiated : 03/04/22 at 11:16 am Service Date, if different from initiated Date: [] Patient: Contreras Mccloud 76 y/o M admitted on 03/02/22 for cold/flu sx. Chief Complaint: [] Interval history: Mr. Mccloud is a 76 year old M history of bladder cancer status post cystectomy and ileal conduit, COPD, type 2 diabetes mellitus, recurrent UTI, essential hypertension, presenting with 5-day history of general weakness, loss of appetite, nausea with vomiting, suprapubic abdominal pain, shortness of breath, productive cough with davey and green sputum productions, and shaking chills. Moreover, he is complaining of 60 pounds weight loss over the 3 years. He has not been follow-up with oncology since the diagnosis of his bladder cancer 3 years ago. Over the past 5 days, he is complain of worsening of general weakness, loss of appetite, nausea with vomiting, shortness of breath with productive cough with davey and green sputum productions, shaking chills, and suprapubic abdominal pain currently graded at 3 out of 10 burning and constant. Vital signs significant for tachycardia and tachypnea. Labs significant for leukocytosis with WBC 12.8. Sodium level 128. Serum creatinine level 1.6. UA does not suggest the presence of urinary tract infections. Chest x-ray showing right basilar pulmonary parenchymal infiltrate consistent with pneumonia. Admission request was called for sepsis associated with pneumonia as well as for the investigations of weight loss/ failure to thrive. 03/03: COVID-negative. RSV positive. MRSA screening negative. Blood culture no growth to date. Serum creatinine level improved from 1.6-0.8. Patient is on room air. Patient has poor appetite. He is also commenting of back pain. He denies any abdominal pain around the ileal conduit site. He denies any subjective fever chills or diaphoresis. DC vancomycin due to negative MRSA. Continue Zosyn while waiting for culture result. Since kidney functions normalized, will order whole-body CT with con trast to look for any sign of malignancy contributing to the unintentional weight loss and overall weakness. We will keep the IV fluid running for now due to poor oral intake as well as CT study with IV contrast. Physical and occupational therapies evaluation and treatments. 03/04: Afebrile overnight. Patient is on room air this morning. Blood culture no growth to date. Patient is NOT complaining of constipation, although he has only been passing gas but no BM. His appetite has been improving. He denies any abdominal pain around the ileal conduit site/ostomy site. He is c/o mild to mod erate pain pain at baseline level. Continue Zosyn while waiting for culture results. Saline lock the patient's. MiraLAX, Colace suppository, Fleet enema PRN constipation. Add Megace to promote appetite. Physical and occupational therapies evaluation and treatments. Constitutional Vitals: Vital Signs Temp Pulse Resp BP Pulse Ox O2 Del Method 36.8 C 96 H 22 122/70 97 03/04/22 07:36 03/04/22 07:36 03/04/22 07:36 03/04/22 07:36 03/04/22 07:36 03/04/22 07:36 Period Temp Pulse Resp BP Sys/Wilson Pulse Ox O2 Del Method O2 Flow Rate Last 24 Hr 36.5 C-37.0 C 96-112 20-22 109-153/70-88 97-99 Room Air-Room Air Intake and Output 03/03/22 03/04/22 03/04/22 19:59 03:59 11:59 Intake Total 2102 300 2500 Output Total 200 1050 1100 Balance 1902 -750 1400 Weight 81.193 kg 78.471 kg Intake & Output: Intake & Output 03/03/22 03/04/22 03/04/22 19:59 03:59 11:59 Intake Total 2102 300 2500 Output Total 200 1050 1100 Balance 1902 -750 1400 Weight 81.193 kg 78.471 kg Intake: IV 1502 1960 Sodium Chloride 0.9% 1,000 ml @ 1002 1960 100 mls/hr IV .Q10H [facility] Rx#: [id number] Vancomycin 1,500 mg In Sodium 500 Chloride 0.9% 500 ml @ 333.3 mls/hr IV Q24H [facility] Rx#: [id number] Oral 600 300 540 Output: Urine Catheter Amount 200 1050 1100 Other: Meal Dinner Breakfast Percent of Meal Consumed 50% 50% Feeding Ability Assist with Tray Set Up Independent Urine Appearance Clear Sediment Urostomy Sediment Sediment Urine Color Dark Yellow Bright Yellow Bright Yellow Urostomy Bright Yellow Bright Yellow Urine Odor Strong Strong Urostomy Strong Head Head exam: Present atraumatic and normal inspection Eye Eye exam: Present normal appearance ENT ENT exam: Present mucous membranes moist, normal exam and normal external ear exam Neck Neck exam: Present normal inspection Respiratory Respiratory exam: Present normal respiratory exam Cardiovascular Cardiovascular exam: Present normal rate and rhythm GI/Abdominal GI/Abdominal exam: Present normal bowel sounds Additional comments: ileal conduit and ostomy in place Additional comments: ileal conduit and ostomy in place Back Exam Back exam: Present normal inspection Neurological Exam Neurological exam: Present alert and oriented X3 Skin Skin exam: Present intact and warm OBJ DATA Labs CBC & Chem 7: 03/04/22 05:15 03/03/22 05:33 Labs: Abnormal Lab Results 03/04/22 03/03/22 03/03/22 05:15 05:33 05:33 WBC RBC 3.22 L 3.32 L Hgb 10.4 L 10.7 L Hct 29.7 L 31.1 L POC Hct Immature Gran % (Auto) 3.6 H 2.2 H Neut % (Auto) 80.8 H Lymph % (Auto) 13.2 L 8.3 L Lymph # (Auto) 0.92 L 0.85 L [place] # (Auto) Immature Gran # 0.25 H 0.22 H Absolute Neutrophils 8.23 H POC Sodium Sodium 128 L POC Chloride Chloride 95 L Carbon Dioxide 20 L POC BUN POC Creatinine Glucose 119 H POC Glucose Hemoglobin A1c Albumin 2.8 L Albumin/Globulin Ratio 0.8 L Procalcitonin Urine Appearance Urine Protein Urine Ketones Urine WBC Urine Bacteria Urine Mucus 03/02/22 03/02/22 03/02/22 15:01 15:01 11:19 WBC RBC Hgb Hct POC Hct Immature Gran % (Auto) Neut % (Auto) Lymph % (Auto) Lymph # (Auto) [place] # (Auto) Immature Gran # Absolute Neutrophils POC Sodium Sodium POC Chloride Chloride Carbon Dioxide POC BUN POC Creatinine Glucose POC Glucose Hemoglobin A1c 6.1 H Albumin Albumin/Globulin Ratio Procalcitonin 0.52 H Urine Appearance Cloudy A Urine Protein Trace A Urine Ketones Trace A Urine WBC 29 H Urine Bacteria Many A Urine Mucus Few A 03/02/22 03/02/22 10:48 10:45 WBC 12.8 H RBC 3.71 L Hgb 12.1 L Hct 34.2 L POC Hct 35.0 L Immature Gran % (Auto) 2.1 H Neut % (Auto) 79.7 H Lymph % (Auto) 7.5 L Lymph # (Auto) 0.96 L [place] # (Auto) 1.34 H Immature Gran # 0.27 H Absolute Neutrophils 10.22 H POC Sodium 128 L Sodium POC Chloride 95 L Chloride Carbon Dioxide POC BUN 32 H POC Creatinine 1.6 H Glucose POC Glucose 184 H Hemoglobin A1c Albumin Albumin/Globulin Ratio Procalcitonin Urine Appearance Urine Protein Urine Ketones Urine WBC Urine Bacteria Urine Mucus Meds: Medications Acetaminophen (Acetaminophen 325 Mg Tablet) 650 mg PO Q6HP PRN; Protocol PRN Reason: Per Pain Protocol/Fever > 101 Last Admin: 03/02/22 19:58 Dose: 650 mg Hydrocodone Bitart/Acetaminophen (Hydrocodone/Apap 7.5/325mg Tablet) 1 tab PO Q4-6HP PRN PRN Reason: pain Albuterol/Ipratropium (Ipratropium/Albuterol 3 Ml Ampul.Neb) 3 ml NEB Q4HRT PRN PRN Reason: Wheezing Cefepime HCl (Cefepime 2 Gm Vial) 2 gm IV Q12H [facility] Last Admin: 03/04/22 09:53 Dose: 2 gm Dextrose (Dextrose 50% 50 Ml Vial) 0 ml IV UD PRN PRN Reason: Per Sliding Scale Diagnostic Test (Pha) (Accu-Chek 1 Each Strip) 1 each FS ACHS [facility] Last Admin: 03/04/22 07:21 Dose: 1 each Docusate Sodium (Docusate Sodium 100 Mg Capsule) 100 mg PO BID [facility] Last Admin: 03/04/22 08:48 Dose: 100 mg Enoxaparin Sodium (Enoxaparin 40 Mg/0.4 Ml Syringe) 40 mg SQ DAILY [facility] Glucose (Dextrose 31 Gm Oral.Susp) 15 gm PO PRN PRN PRN Reason: Hypoglycemia Guaifenesin (Guaifenesin/Dextromethorphan Oral Naomi) 10 ml PO Q4HP PRN PRN Reason: Cough Last Admin: 03/04/22 07:31 Dose: 10 ml Insulin Human Lispro (Insulin Lispro 1 Unit/0.01 Ml Unit) 0 unit SQ ACHS [facility]; Protocol Last Admin: 03/04/22 07:22 Dose: Not Given Methocarbamol (Methocarbamol 500 Mg Tablet) 500 mg PO Q6HP PRN PRN Reason: pain Last Admin: 03/03/22 03:36 Dose: 500 mg Morphine Sulfate (Morphine 4 Mg/Ml Vial) 4 mg IV Q4HP PRN; Protocol PRN Reason: Per Pain Protocol Last Admin: 03/04/22 04:41 Dose: 4 mg Ondansetron HCl (Ondansetron 4 Mg/2 Ml Vial) 4 mg IV Q6HP PRN PRN Reason: Nausea And Vomiting Last Admin: 03/03/22 03:44 Dose: 4 mg Pregabalin (Pregabalin 25 Mg Capsule) 50 mg PO TID [facility] Last Admin: 03/04/22 08:47 Dose: 50 mg Senna (Sennosides 1 Tablet) 2 tab PO HS [facility] Last Admin: 03/03/22 20:46 Dose: 2 tab Sodium Chloride (0.9 % Sodium Chloride 10 Ml Syringe) 10 ml IV Q8 [facility] Last Admin: 03/04/22 05:05 Dose: Not Given Trazodone HCl (Trazodone Hcl 50 Mg Tablet) 25 mg PO HSP PRN PRN Reason: Insomnia A/P Assessment and plan (1) Adult failure to thrive: Status: Acute (2) Community acquired pneumonia: Status: Acute (3) Hypertension: Status: Chronic (4) Malignant neoplasm of posterior wall of urinary bladder: Status: Chronic (5) COPD (chronic obstructive pulmonary disease): Status: Chronic (6) T2DM (type 2 diabetes mellitus): Status: Acute (7) Stage 1 acute kidney injury: Status: Acute (8) RSV (respiratory syncytial virus infection): Status: Acute Narrative A/P Narrative: Assessment and Plans: 1. Pneumonia with sepsis: Inpatient med surg Saline lock Serial lactic acid 1.5 Procalcitonin 0.52 Cephein PCR: CoVID negative, RSV positive Blood culture, no growth to date MRSA screening negative, d/c vancomycin cbc w/ auto diff in the morning to trend WBC Supplemental oxygen therapy Continue Cefepime while monitoring for culture results 2. Adult failure to thrive: DDx include malignancy, new versus unresolved bladder cancer Whole-body CT with IV contrast Supervisor [employer] referral Megace 400mg PO daily 3. h/o Essential hypertension: Currently normotensive, continue to monitor 4. h/o bladder cancer: Whole-body CT with IV contrast-->no suspicious lesions suggestive of malignancy 5. Type 2 diabetes mellitus: HgA1c 6.1 Hold any oral hypoglycemics d/c Insulin NPH Low dose Insulin Lispro SSI AC HS Accu Check AC HS Hypoglycemia protocol Diabetic diet 6. h/o COPD, stable: DuoNEB NEB PRN wheezing or shortness of breath 7. Stage 1 acute kidney disease: Kidney functions improved Avoid nephrotoxic agents Saline lock CMP in the morning to trend kidney functions 8. RSV infection: Isolation: droplet Supplemental oxygen therapy GI ppx: not currently indicated DVT ppx: Lovenox Code status: Full Prognosis: Stable Disposition: inpatient med surg; PT OT Time Spent With Patient Time: Total time spent is greater than 50% in coordination of care (as documented) at patient's floor/unit and/or counseling patient: Total time spent with greater than 50% in coordination of care (as documented) at patient's floor/unit and/or counseling patient:: 25 - 35 minutes QUALITY Stroke Symptom Onset Unknown: No VTE Deep Vein Thrombosis/Pulmonary Embolism Present on Admission: No
[2022-03-04] MEDS: MEGESTROL ACETATE 400 MG/10 ML UDC PO SCH (11:52)
--- NOTE | 2022-03-04 13:32 | Internal Med Progress Note ---
SUBJECTIVE Subjective Patient information: Note initiated : 03/04/22 at 1:31 pm Service Date, if different from initiated Date: [] Patient: Contreras Mccloud 76 y/o M admitted on 03/02/22 for cold/flu sx. Chief Complaint: [] Interval history: Mr. Mccloud is a 76 year old M history of bladder cancer status post cystectomy and ileal conduit, COPD, type 2 diabetes mellitus, recurrent UTI, essential hypertension, presenting with 5-day history of general weakness, loss of appetite, nausea with vomiting, suprapubic abdominal pain, shortness of breath, productive cough with davey and green sputum productions, and shaking chills. Moreover, he is complaining of 60 pounds weight loss over the 3 years. He has not been follow-up with oncology since the diagnosis of his bladder cancer 3 years ago. Over the past 5 days, he is complain of worsening of general weakness, loss of appetite, nausea with vomiting, shortness of breath with productive cough with davey and green sputum productions, shaking chills, and suprapubic abdominal pain currently graded at 3 out of 10 burning and constant. Vital signs significant for tachycardia and tachypnea. Labs significant for leukocytosis with WBC 12.8. Sodium level 128. Serum creatinine level 1.6. UA does not suggest the presence of urinary tract infections. Chest x-ray showing right basilar pulmonary parenchymal infiltrate consistent with pneumonia. Admission request was called for sepsis associated with pneumonia as well as for the investigations of weight loss/ failure to thrive. 03/03: COVID-negative. RSV positive. MRSA screening negative. Blood culture no growth to date. Serum creatinine level improved from 1.6-0.8. Patient is on room air. Patient has poor appetite. He is also commenting of back pain. He denies any abdominal pain around the ileal conduit site. He denies any subjective fever chills or diaphoresis. DC vancomycin due to negative MRSA. Continue Zosyn while waiting for culture result. Since kidney functions normalized, will order whole-body CT with cont rast to look for any sign of malignancy contributing to the unintentional weight loss and overall weakness. We will keep the IV fluid running for now due to poor oral intake as well as CT study with IV contrast. Physical and occupational therapies evaluation and treatments. 03/04: Afebrile overnight. Patient is on room air this morning. Blood culture no growth to date. Patient is NOT complaining of constipation, although he has only been passing gas but no BM. His appetite has been improving. He denies any abdominal pain around the ileal conduit site/ostomy site. He is c/o mild to moderate pain pain at baseline level. Continue Zosyn while waiting for culture results. Saline lock the patient's. MiraLAX, Colace suppository, Fleet enema PRN constipation. Add Megace to promote appetite. Physical and occupational therapies evaluation and treatments. Constitutional Vitals: Vital Signs Temp Pulse Resp BP Pulse Ox O2 Del Method 98.1 F 105 H 20 129/89 97 03/04/22 12:05 03/04/22 12:05 03/04/22 12:05 03/04/22 12:05 03/04/22 12:05 03/04/22 12:05 Period Temp Pulse Resp BP Sys/Wilson Pulse Ox O2 Del Method O2 Flow Rate Last 24 Hr 97.7 F-98.6 F 96-110 -22 109-153/70-89 97-99 Room Air-Room Air Intake and Output 03/04/22 03/04/22 03/04/22 03:59 11:59 19:59 Intake Total 300 2740 Output Total 1050 1600 Balance -750 1140 Weight 78.471 kg Intake & Output: Intake & Output 03/04/22 03/04/22 03/04/22 03:59 11:59 19:59 Intake Total 300 2740 Output Total 1050 1600 Balance -750 1140 Weight 78.471 kg Intake: IV 1960 Sodium Chloride 0.9% 1,000 ml @ 1960 100 mls/hr IV .Q10H [facility] Rx#: [id number] Oral 300 780 Output: Urine Catheter Amount 1050 1600 Other: Meal Breakfast Percent of Meal Consumed 50% Feeding Ability Independent Urine Appearance Clear Sediment Urostomy Sediment Urine Color Bright Yellow Bright Yellow Urostomy Bright Yellow Urine Odor Strong Urostomy Strong Exam: General: Alert, Awake, No acute Distress Eyes/N/T: EOMI, Head/Neck: neck supple, CV: RRR, No murmurs, Pulm: Clear b/l, no wheezing/rhonchi/rales Abd: soft, nontender, +BS x4, ileal conduit and ostomy in place Ext: no clubbing/cyanosis/edema Neuro: Alert, no focal deficits, moves all extremities, Skin: warm/dry OBJ DATA Labs CBC & Chem 7: 03/04/22 05:15 03/03/22 05:33 Labs: Abnormal Lab Results 03/04/22 03/03/22 03/03/22 05:15 05:33 05:33 WBC RBC 3.22 L 3.32 L Hgb 10.4 L 10.7 L Hct 29.7 L 31.1 L POC Hct Immature Gran % (Auto) 3.6 H 2.2 H Neut % (Auto) 80.8 H Lymph % (Auto) 13.2 L 8.3 L Lymph # (Auto) 0.92 L 0.85 L [place] # (Auto) Immature Gran # 0.25 H 0.22 H Absolute Neutrophils 8.23 H POC Sodium Sodium 128 L POC Chloride Chloride 95 L Carbon Dioxide 20 L POC BUN POC Creatinine Glucose 119 H POC Glucose Hemoglobin A1c Albumin 2.8 L Albumin/Globulin Ratio 0.8 L Procalcitonin Urine Appearance Urine Protein Urine Ketones Urine WBC Urine Bacteria Urine Mucus 03/02/22 03/02/22 03/02/22 15:01 15:01 11:19 WBC RBC Hgb Hct POC Hct Immature Gran % (Auto) Neut % (Auto) Lymph % (Auto) Lymph # (Auto) [place] # (Auto) Immature Gran # Absolute Neutrophils POC Sodium Sodium POC Chloride Chloride Carbon Dioxide POC BUN POC Creatinine Glucose POC Glucose Hemoglobin A1c 6.1 H Albumin Albumin/Globulin Ratio Procalcitonin 0.52 H Urine Appearance Cloudy A Urine Protein Trace A Urine Ketones Trace A Urine WBC 29 H Urine Bacteria Many A Urine Mucus Few A 03/02/22 03/02/22 10:48 10:45 WBC 12.8 H RBC 3.71 L Hgb 12.1 L Hct 34.2 L POC Hct 35.0 L Immature Gran % (Auto) 2.1 H Neut % (Auto) 79.7 H Lymph % (Auto) 7.5 L Lymph # (Auto) 0.96 L [place] # (Auto) 1.34 H Immature Gran # 0.27 H Absolute Neutrophils 10.22 H POC Sodium 128 L Sodium POC Chloride 95 L Chloride Carbon Dioxide POC BUN 32 H POC Creatinine 1.6 H Glucose POC Glucose 184 H Hemoglobin A1c Albumin Albumin/Globulin Ratio Procalcitonin Urine Appearance Urine Protein Urine Ketones Urine WBC Urine Bacteria Urine Mucus Meds: Medications Acetaminophen (Acetaminophen 325 Mg Tablet) 650 mg PO Q6HP PRN; Protocol PRN Reason: Per Pain Protocol/Fever > 101 Last Admin: 03/02/22 19:58 Dose: 650 mg Hydrocodone Bitart/Acetaminophen (Hydrocodone/Apap 7.5/325mg Tablet) 1 tab PO Q4-6HP PRN PRN Reason: pain Last Admin: 03/04/22 11:48 Dose: 1 tab Albuterol/Ipratropium (Ipratropium/Albuterol 3 Ml Ampul.Neb) 3 ml NEB Q4HRT PRN PRN Reason: Wheezing Bisacodyl (Bisacodyl 10 Mg Supp.Rect) 10 mg [facility] DAILYP PRN PRN Reason: Constipation Cefepime HCl (Cefepime 2 Gm Vial) 2 gm IV Q12H [facility] Last Admin: 03/04/22 09:53 Dose: 2 gm Dextrose (Dextrose 50% 50 Ml Vial) 0 ml IV UD PRN PRN Reason: Per Sliding Scale Diagnostic Test (Pha) (Accu-Chek 1 Each Strip) 1 each FS ACHS [facility] Last Admin: 03/04/22 11:24 Dose: 1 each Docusate Sodium (Docusate Sodium 100 Mg Capsule) 100 mg PO BID [facility] Last Admin: 03/04/22 08:48 Dose: 100 mg Enoxaparin Sodium (Enoxaparin 40 Mg/0.4 Ml Syringe) 40 mg SQ DAILY [facility] Glucose (Dextrose 31 Gm Oral.Susp) 15 gm PO PRN PRN PRN Reason: Hypoglycemia Guaifenesin (Guaifenesin/Dextromethorphan Oral Naomi) 10 ml PO Q4HP PRN PRN Reason: Cough Last Admin: 03/04/22 11:47 Dose: 10 ml Insulin Human Lispro (Insulin Lispro 1 Unit/0.01 Ml Unit) 0 unit SQ ACHS [facility]; Protocol Last Admin: 03/04/22 11:47 Dose: 1 units Megestrol Acetate (Megestrol Acetate 400 Mg/10 Ml Udc) 400 mg PO DAILY [facility] Last Admin: 03/04/22 11:52 Dose: 400 mg Methocarbamol (Methocarbamol 500 Mg Tablet) 500 mg PO Q6HP PRN PRN Reason: pain Last Admin: 03/03/22 03:36 Dose: 500 mg Morphine Sulfate (Morphine 4 Mg/Ml Vial) 4 mg IV Q4HP PRN; Protocol PRN Reason: Per Pain Protocol Last Admin: 03/04/22 04:41 Dose: 4 mg Ondansetron HCl (Ondansetron 4 Mg/2 Ml Vial) 4 mg IV Q6HP PRN PRN Reason: Nausea And Vomiting Last Admin: 03/03/22 03:44 Dose: 4 mg Polyethylene Glycol (Polyethylene Glycol 3350 17 Gm Packet) 17 gm PO DAILYP PRN PRN Reason: Constipation Last Admin: 03/04/22 11:48 Dose: 17 gm Pregabalin (Pregabalin 25 Mg Capsule) 50 mg PO TID [facility] Last Admin: 03/04/22 08:47 Dose: 50 mg Senna (Sennosides 1 Tablet) 2 tab PO HS [facility] Last Admin: 03/03/22 20:46 Dose: 2 tab Sodium Biphosphate/Sodium Phosphate (Fleets Adult Enema) 1 dose [place] DAILYP PRN PRN Reason: Constipation Sodium Chloride (0.9 % Sodium Chloride 10 Ml Syringe) 10 ml IV Q8 [facility] Last Admin: 03/04/22 13:22 Dose: 10 ml Trazodone HCl (Trazodone Hcl 50 Mg Tablet) 25 mg PO HSP PRN PRN Reason: Insomnia A/P Narrative A/P Narrative: Assessment and Plans: *Pneumonia with Sepsis: -Serial lactic acid, Procalcitonin 0.52 -Cephein PCR: CoVID negative, RSV positive -Blood culture, no growth to date, MRSA screening negative, d/c vancomycin -cbc w/ auto diff in the morning to trend WBC -Supplemental oxygen therapy -Continue Cefepime while monitoring for culture results *RSV infection: Isolation: droplet, Supplemental oxygen therapy *Adult failure to thrive: -DDx include malignancy, new versus unresolved bladder cancer -Whole-body CT with IV contrast negative for tumors -[employer]osp[employer] Specialist referral -Megace 400mg PO daily *h/o bladder cancer: Whole-body CT with IV contrast-->no suspicious lesions suggestive of malignancy *HTN: *DM2: -Hold any oral hypoglycemics -d/c Insulin NPH, SSI *COPD( ): DuoNEB NEB PRN wheezing or shortness of breath *YOVANI: -Kidney functions improved -Avoid nephrotoxic agents, Saline lock -CMP in the morning to trend kidney functions *ppx: Lovenox Time Spent With Patient Time: Total time spent is greater than 50% in coordination of care (as documented) at patient's floor/unit and/or counseling patient: QUALITY Stroke Symptom Onset Unknown: No VTE Deep Vein Thrombosis/Pulmonary Embolism Present on Admission: No
--- NOTE | 2022-03-04 13:38 | Discharge Summary ---
Discharge Provider Provider IMPORTANT FOLLOW-UP INFORMATION FOR PCP: Patient information: Note initiated : 03/04/22 at 1:37 pm Service Date, if different from initiated Date: [] Patient: Contreras Mccloud 76 y/o M admitted on 03/02/22 for cold/flu sx. Chief Complaint: [] Date of admission: 03/02/22 14:16 Discharge date: 03/05/22 Primary care physician: Lorenzo Ruffin Consults: 03/02/22 12:05 Consult to Physician [CONS] Stat Comment: Consulting Provider: Flaco Coates Reason For Exam: Physician to Consult COURSE Hospital Course Hospital course: Interval history: Mr. Mccloud is a 76 year old M history of bladder cancer status post cystectomy and ileal conduit, COPD, type 2 diabetes mellitus, recurrent UTI, essential hypertension, presenting with 5-day history of general weakness, loss of appetite, nausea with vomiting, suprapubic abdominal pain, shortness of breath, productive cough with davey and green sputum productions, and shaking chills. Moreover, he is complaining of 60 pounds weight loss over the 3 years. He has not been follow-up with oncology since the diagnosis of his bladder cancer 3 years ago. Over the past 5 days, he is complain of worsening of general weakness, loss of appetite, nausea with vomiting, shortness of breath with productive cough with davey and green sputum productions, shaking chills, and suprapubic abdominal pain currently graded at 3 out of 10 burning and constant. Vital signs significant for tachycardia and tachypnea. Labs significant for leukocytosis with WBC 12.8. Sodium level 128. Serum creatinine level 1.6. UA does not suggest the presence of urinary tract infections. Chest x-ray showing right basilar pulmonary parenchymal infiltrate consistent with pneumonia. Admission request was called for sepsis associated with pneumonia as well as for the investigations of weight loss/ failure to thrive. 03/03: COVID-negative. RSV positive. MRSA screening negative. Blood culture no growth to date. Serum creatinine level improved from 1.6-0.8. Patient is on room air. Patient has poor appetite. He is also commenting of back pain. He denies any abdominal pain around the ileal conduit site. He denies any subjective fever chills or diaphoresis. DC vancomycin due to negative MRSA. Continue Zosyn while waiting for culture result. Since kidney functions normalized, will order whole-body CT with contrast to look for any sign of malignancy contributing to the unintentional weight loss and overall weakness. We will keep the IV fluid running for now due to poor oral intake as well as CT study with IV contrast. Physical and occupational therapies evaluation and treatments. 03/04: Afebrile overnight. Patient is on room air this morning. Blood culture no growth to date. Patient is NOT complaining of constipation, although he has only been passing gas but no BM. His appetite has been improving. He denies any abdominal pain around the ileal conduit site/ostomy site. He is c/o mild to moderate pain pain at baseline level. Continue Zosyn while waiting for culture results. Saline lock the patient's. MiraLAX, Colace suppository, Fleet enema PRN constipation. Add Megace to promote appetite. Physical and occupational therapies evaluation and treatments. 03/05 No overnight event or new complaints. Patient feeling better ready to go home. Discharge to rehab. Assessment and Plans: *Pneumonia with Sepsis: *RSV infection: *Adult failure to thrive: *h/o bladder cancer: Whole-body CT with IV contrast-->no suspicious lesions suggestive of malignancy *HTN: *DM2: *COPD( ): DuoNEB NEB PRN wheezing or shortness of breath *YOVANI: Discharge diagnosis: Pneumonia sepsis RSV failure to thrive history of bladder cancer Secondary discharge diagnosis: Hypertension diabetes COPD acute kidney injury Time Spent with Patient Time attestation: Total time spent providing and/or coordinating discharge services: Time spent: Greater than 30 minutes EXAM Constitutional Vitals: Temp Pulse Resp BP Pulse Ox O2 Del Method 98.1 F 105 H 20 129/89 97 03/04/22 12:05 03/04/22 12:05 03/04/22 12:05 03/04/22 12:05 03/04/22 12:05 03/04/22 12:05 Discharge Data Data Completed and Pending Labs on day of discharge: Labs from last 24 hours 03/04/22 03/04/22 05:15 05:15 WBC 7.0 RBC 3.22 L Hgb 10.4 L Hct 29.7 L MCV 92.2 MCH 32.3 MCHC 35.0 RDW 12.0 Plt Count 213 MPV 9.3 Immature Gran % (Auto) 3.6 H Neut % (Auto) 73.6 Lymph % (Auto) 13.2 L Cole % (Auto) 8.6 Eos % (Auto) 0.7 Baso % (Auto) 0.3 Lymph # (Auto) 0.92 L Cole # (Auto) 0.60 Eos # (Auto) 0.05 Baso # (Auto) 0.02 Immature Gran # 0.25 H Absolute Neutrophils 5.12 Sodium Pending Potassium Pending Chloride Pending Carbon Dioxide Pending Anion Gap Pending BUN Pending Creatinine Pending GFR Calculation Pending Glucose Pending Calcium Pending Total Bilirubin Pending AST Pending ALT Pending Alkaline Phosphatase Pending Total Protein Pending Albumin Pending Globulin Pending Albumin/Globulin Ratio Pending Preliminary micro results at discharge 03/02/22 10:55 Blood Culture - Preliminary Blood 03/02/22 10:48 Blood Culture - Preliminary Blood Discharge Plan Patient/Caregiver Discharge Instructions Activity: increase activity as tolerated Diet: Consistent Carbohydrate Prescriptions: New cefdinir 300 mg capsule 300 mg PO BID Qty: 7 0RF Continued Novolin N Flexpen 100 unit/mL (3 mL) insulin pen 10 unit subcut BID pregabalin [Lyrica] 50 mg capsule 50 mg PO TID Qty: 21 0RF methocarbamol 500 mg tablet 500 mg PO Q6H PRN (Reason: pain) Qty: 10 0RF Rx Instructions: May take half tab if drowsiness occurs or only at night time. hydrocodone-acetaminophen 7.5-325 mg tablet 1 tab PO Q8H PRN (Reason: pain) Qty: 10 0RF Follow Up Plan Follow up with: Lorenzo Ruffin ARNP [Primary Care Provider] - Patient Disposition: Xfer SNF Prognosis: Fair Rehab Potential: Fair I certify that the patient requires SNF services: Yes Overall status at discharge: patient is progressing back to baseline Discharge Orders: Discharge Order (Routine); Ordered 03/05/22 Ordered By: Hesham Moreno [facility] VTE Deep Vein Thrombosis/Pulmonary Embolism Present on Admission: No
[2022-03-04 14:18] LABS: ALT/SGPT 8 U/L (<40); AST/SGOT 11 U/L (<40); Albumin 2.7 gm/dL (3.2-5.2); Albumin/Globulin Ratio 0.8 (1.0-2.3); Alkaline Phosphatase 90 U/L (39-117); Bilirubin,Total 0.5 mg/dL (0.1-1.0); Blood Urea Nitrogen 10 mg/dL (8-23); Carbon Dioxide 22 mmol/L (22-30); Chloride 98 mmol/L (96-108); Globulin 3.5 gm/dL (2.2-3.7); Glomerular Filtration Rate 91; Glucose 124 mg/dL (70-105)
[2022-03-04] MEDS: METHOCARBAMOL 500 MG TABLET PO PRN (22:03)
[2022-03-04] MEDS: SENNOSIDES 1 TABLET PO SCH (22:03)
[2022-03-05] MEDS: HYDROCODONE/APAP 7.5/325MG TABLET PO PRN ×3 (04:00→21:21)
[2022-03-05] MEDS: guaiFENesin/DEXTROMETHORPHAN ORAL SOL PO PRN (04:06)
[2022-03-05] MEDS: 0.9 % SODIUM CHLORIDE 10 ML SYRINGE IV SCH ×3 (04:06→21:23)
[2022-03-05] MEDS: DOCUSATE SODIUM 100 MG CAPSULE PO SCH ×2 (08:23→21:23)
[2022-03-05] MEDS: ENOXAPARIN 40 MG/0.4 ML SYRINGE SQ SCH (08:23)
[2022-03-05] MEDS: MEGESTROL ACETATE 400 MG/10 ML UDC PO SCH (08:23)
[2022-03-05] MEDS: PREGABALIN 25 MG CAPSULE PO SCH ×3 (08:24→21:23)
[2022-03-05] MEDS: INSULIN LISPRO 1 UNIT/0.01 ML UNIT SQ SCH ×4 (08:24→21:23)
--- NOTE | 2022-03-05 08:55 | Internal Med Progress Note ---
SUBJECTIVE Subjective Patient information: Note initiated : 03/05/22 at 8:53 am Service Date, if different from initiated Date: [] Patient: Contreras Mccloud 76 y/o M admitted on 03/02/22 for cold/flu sx. Chief Complaint: [] Interval history: Mr. Mccloud is a 76 year old M history of bladder cancer status post cystectomy and ileal conduit, COPD, type 2 diabetes mellitus, recurrent UTI, essential hypertension, presenting with 5-day history of general weakness, loss of appetite, nausea with vomiting, suprapubic abdominal pain, shortness of breath, productive cough with davey and green sputum productions, and shaking chills. Moreover, he is complaining of 60 pounds weight loss over the 3 years. He has not been follow-up with oncology since the diagnosis of his bladder cancer 3 years ago. Over the past 5 days, he is complain of worsening of general weakness, loss of appetite, nausea with vomiting, shortness of breath with productive cough with davey and green sputum productions, shaking chills, and suprapubic abdominal pain currently graded at 3 out of 10 burning and constant. Vital signs significant for tachycardia and tachypnea. Labs significant for leukocytosis with WBC 12.8. Sodium level 128. Serum creatinine level 1.6. UA does not suggest the presence of urinary tract infections. Chest x-ray showing right basilar pulmonary parenchymal infiltrate consistent with pneumonia. Admission request was called for sepsis associated with pneumonia as well as for the investigations of weight loss/ failure to thrive. 03/03: COVID-negative. RSV positive. MRSA screening negative. Blood culture no growth to date. Serum creatinine level improved from 1.6-0.8. Patient is on room air. Patient has poor appetite. He is also commenting of back pain. He denies any abdominal pain around the ileal conduit site. He denies any subjective fever chills or diaphoresis. DC vancomycin due to negative MRSA. Continue Zosyn while waiting for culture result. Since kidney functions normalized, will order whole-body CT with cont rast to look for any sign of malignancy contributing to the unintentional weight loss and overall weakness. We will keep the IV fluid running for now due to poor oral intake as well as CT study with IV contrast. Physical and occupational therapies evaluation and treatments. 03/04: Afebrile overnight. Patient is on room air this morning. Blood culture no growth to date. Patient is NOT complaining of constipation, although he has only been passing gas but no BM. His appetite has been improving. He denies any abdominal pain around the ileal conduit site/ostomy site. He is c/o mild to moderate pain pain at baseline level. Continue Zosyn while waiting for culture results. Saline lock the patient's. MiraLAX, Colace suppository, Fleet enema PRN constipation. Add Megace to promote appetite. Physical and occupational therapies evaluation and treatments. 03/05 No overnight event or new complaints. Patient feeling better ready to go home. Discharge to rehab. Review of Systems: denies headache/fever/chills/nausea/vomiting/chest or abdominal pain/cough/dyspnea/diarrhea. Otherwise see above. Constitutional Vitals: Vital Signs Temp Pulse Resp BP Pulse Ox O2 Del Method 98.1 F 110 H 22 132/93 95 03/05/22 07:55 03/05/22 07:55 03/05/22 07:55 03/05/22 07:55 03/05/22 07:55 03/05/22 07:55 Period Temp Pulse Resp BP Sys/Wilson Pulse Ox O2 Del Method O2 Flow Rate Last 24 Hr 96.8 F-98.1 F 75-114 - 126-138/81-93 94-100 Room Air-Room Air Intake and Output 03/04/22 03/05/22 03/05/22 19:59 03:59 11:59 Intake Total 790 400 Output Total 200 350 Balance 590 50 Weight 78.381 kg Intake & Output: Intake & Output 03/04/22 03/05/22 03/05/22 19:59 03:59 11:59 Intake Total 790 400 Output Total 200 350 Balance 590 50 Weight 78.381 kg Intake: Nourishment/Supplement quantity 240 (ml) Oral 550 400 Output: Urine Catheter Amount 200 Void Amount 350 Other: Meal Lunch Percent of Meal Consumed 45% Feeding Ability Independent Nourishment/Supplement name Glucerna Urine Appearance Mucous Threads Urostomy Sediment Urine Color Yellow Exam: General: Alert, Awake, No acute Distress Eyes/N/T: EOMI, Head/Neck: neck supple, CV: RRR, No murmurs, Pulm: Clear b/l, no wheezing/rhonchi/rales Abd: soft, nontender, +BS x4, ileal conduit and ostomy in place Ext: no clubbing/cyanosis/edema Neuro: Alert, no focal deficits, moves all extremities, Skin: warm/dry OBJ DATA Labs CBC & Chem 7: 03/04/22 05:15 03/04/22 05:15 Labs: Abnormal Lab Results 03/04/22 03/04/22 03/03/22 05:15 05:15 05:33 WBC RBC 3.22 L Hgb 10.4 L Hct 29.7 L POC Hct Immature Gran % (Auto) 3.6 H Neut % (Auto) Lymph % (Auto) 13.2 L Lymph # (Auto) 0.92 L Kingfisher # (Auto) Immature Gran # 0.25 H Absolute Neutrophils POC Sodium Sodium 132 L 128 L POC Chloride Chloride 95 L Carbon Dioxide 20 L POC BUN POC Creatinine Glucose 124 H 119 H POC Glucose Hemoglobin A1c Albumin 2.7 L 2.8 L Albumin/Globulin Ratio 0.8 L 0.8 L Procalcitonin Urine Appearance Urine Protein Urine Ketones Urine WBC Urine Bacteria Urine Mucus 03/03/22 03/02/22 03/02/22 05:33 15:01 15:01 WBC RBC 3.32 L Hgb 10.7 L Hct 31.1 L POC Hct Immature Gran % (Auto) 2.2 H Neut % (Auto) 80.8 H Lymph % (Auto) 8.3 L Lymph # (Auto) 0.85 L Kingfisher # (Auto) Immature Gran # 0.22 H Absolute Neutrophils 8.23 H POC Sodium Sodium POC Chloride Chloride Carbon Dioxide POC BUN POC Creatinine Glucose POC Glucose Hemoglobin A1c 6.1 H Albumin Albumin/Globulin Ratio Procalcitonin 0.52 H Urine Appearance Urine Protein Urine Ketones Urine WBC Urine Bacteria Urine Mucus 03/02/22 03/02/22 03/02/22 11:19 10:48 10:45 WBC 12.8 H RBC 3.71 L Hgb 12.1 L Hct 34.2 L POC Hct 35.0 L Immature Gran % (Auto) 2.1 H Neut % (Auto) 79.7 H Lymph % (Auto) 7.5 L Lymph # (Auto) 0.96 L Kingfisher # (Auto) 1.34 H Immature Gran # 0.27 H Absolute Neutrophils 10.22 H POC Sodium 128 L Sodium POC Chloride 95 L Chloride Carbon Dioxide POC BUN 32 H POC Creatinine 1.6 H Glucose POC Glucose 184 H Hemoglobin A1c Albumin Albumin/Globulin Ratio Procalcitonin Urine Appearance Cloudy A Urine Protein Trace A Urine Ketones Trace A Urine WBC 29 H Urine Bacteria Many A Urine Mucus Few A Meds: Medications Acetaminophen (Acetaminophen 325 Mg Tablet) 650 mg PO Q6HP PRN; Protocol PRN Reason: Per Pain Protocol/Fever > 101 Last Admin: 03/02/22 19:58 Dose: 650 mg Hydrocodone Bitart/Acetaminophen (Hydrocodone/Apap 7.5/325mg Tablet) 1 tab PO Q4-6HP PRN PRN Reason: pain Last Admin: 03/05/22 04:00 Dose: 1 tab Albuterol/Ipratropium (Ipratropium/Albuterol 3 Ml Ampul.Neb) 3 ml NEB Q4HRT PRN PRN Reason: Wheezing Last Admin: 03/04/22 22:23 Dose: 3 ml Bisacodyl (Bisacodyl 10 Mg Supp.Rect) 10 mg CO DAILYP PRN PRN Reason: Constipation Cefepime HCl (Cefepime 2 Gm Vial) 2 gm IV Q12H [facility] Last Admin: 03/04/22 22:05 Dose: 2 gm Dextrose (Dextrose 50% 50 Ml Vial) 0 ml IV UD PRN PRN Reason: Per Sliding Scale Diagnostic Test (Pha) (Accu-Chek 1 Each Strip) 1 each FS [facility] Last Admin: 03/05/22 08:24 Dose: 1 each Docusate Sodium (Docusate Sodium 100 Mg Capsule) 100 mg PO BID [facility] Last Admin: 03/05/22 08:23 Dose: 100 mg Enoxaparin Sodium (Enoxaparin 40 Mg/0.4 Ml Syringe) 40 mg SQ DAILY [facility] Last Admin: 03/05/22 08:23 Dose: 40 mg Glucose (Dextrose 31 Gm Oral.Susp) 15 gm PO PRN PRN PRN Reason: Hypoglycemia Guaifenesin (Guaifenesin/Dextromethorphan Oral Naomi) 10 ml PO Q4HP PRN PRN Reason: Cough Last Admin: 03/05/22 04:06 Dose: 10 ml Insulin Human Lispro (Insulin Lispro 1 Unit/0.01 Ml Unit) 0 unit SQ [facility]; Protocol Last Admin: 03/05/22 08:24 Dose: 2 units Megestrol Acetate (Megestrol Acetate 400 Mg/10 Ml Udc) 400 mg PO DAILY [facility] Last Admin: 03/05/22 08:23 Dose: 400 mg Methocarbamol (Methocarbamol 500 Mg Tablet) 500 mg PO Q6HP PRN PRN Reason: pain Last Admin: 03/04/22 22:03 Dose: 500 mg Morphine Sulfate (Morphine 4 Mg/Ml Vial) 4 mg IV Q4HP PRN; Protocol PRN Reason: Per Pain Protocol Last Admin: 03/04/22 04:41 Dose: 4 mg Ondansetron HCl (Ondansetron 4 Mg/2 Ml Vial) 4 mg IV Q6HP PRN PRN Reason: Nausea And Vomiting Last Admin: 03/03/22 03:44 Dose: 4 mg Polyethylene Glycol (Polyethylene Glycol 3350 17 Gm Packet) 17 gm PO DAILYP PRN PRN Reason: Constipation Last Admin: 03/04/22 11:48 Dose: 17 gm Pregabalin (Pregabalin 25 Mg Capsule) 50 mg PO TID [facility] Last Admin: 03/05/22 08:24 Dose: 50 mg Senna (Sennosides 1 Tablet) 2 tab PO HS [facility] Last Admin: 03/04/22 22:03 Dose: 2 tab Sodium Biphosphate/Sodium Phosphate (Fleets Adult Enema) 1 dose CO DAILYP PRN PRN Reason: Constipation Sodium Chloride (0.9 % Sodium Chloride 10 Ml Syringe) 10 ml IV Q8 [facility] Last Admin: 03/05/22 04:06 Dose: 10 ml Trazodone HCl (Trazodone Hcl 50 Mg Tablet) 25 mg PO HSP PRN PRN Reason: Insomnia A/P Narrative A/P Narrative: Assessment and Plans: *Pneumonia with Sepsis: -Serial lactic acid, Procalcitonin 0.52 on admit, leukocytosis resolved -Cephein PCR: CoVID negative, RSV positive -Blood culture, no growth to date, MRSA screening negative -cbc w/ auto diff in the morning to trend WBC -Supplemental oxygen therapy prn -Continue Cefepime while monitoring for culture results *RSV infection: Isolation: droplet, Supplemental oxygen therapy *Adult failure to thrive: -DDx include malignancy, new versus unresolved bladder cancer -Whole-body CT with IV contrast negative for tumors -[employer] referral -Megace 400mg PO daily *h/o bladder cancer: Whole-body CT with IV contrast-->no suspicious lesions suggestive of malignancy *HTN: *DM2: -Hold any oral hypoglycemics, d/c Insulin NPH, SSI *COPD( ): DuoNEB NEB PRN wheezing or shortness of breath *YOVANI: -Kidney functions improved -Avoid nephrotoxic agents, Saline lock -CMP in the morning to trend kidney functions *Anemia: *ppx: Lovenox Time Spent With Patient Time: Total time spent is greater than 50% in coordination of care (as documented) at patient's floor/unit and/or counseling patient: Total time spent with greater than 50% in coordination of care (as documented) at patient's floor/unit and/or counseling patient:: 35 - 50 minutes QUALITY Stroke Symptom Onset Unknown: No VTE Deep Vein Thrombosis/Pulmonary Embolism Present on Admission: No
[2022-03-05] MEDS: CEFEPIME 2 GM VIAL IV SCH ×2 (10:02→21:23)
[2022-03-05] MEDS: METHOCARBAMOL 500 MG TABLET PO PRN ×2 (15:00→21:22)
[2022-03-05] MEDS: morphine 4 MG/ML VIAL IV PRN (19:20)
[2022-03-05] MEDS: SENNOSIDES 1 TABLET PO SCH (21:22)
[2022-03-06] MEDS: morphine 4 MG/ML VIAL IV PRN (00:13)
[2022-03-06] MEDS: guaiFENesin/DEXTROMETHORPHAN ORAL SOL PO PRN (00:14)
[2022-03-06] MEDS: HYDROCODONE/APAP 7.5/325MG TABLET PO PRN (04:20)
[2022-03-06] MEDS: METHOCARBAMOL 500 MG TABLET PO PRN (04:20)
[2022-03-06] MEDS: 0.9 % SODIUM CHLORIDE 10 ML SYRINGE IV SCH (04:22)
[2022-03-06] MEDS: INSULIN LISPRO 1 UNIT/0.01 ML UNIT SQ SCH ×2 (07:51→11:35)
[2022-03-06] MEDS: MEGESTROL ACETATE 400 MG/10 ML UDC PO SCH (08:37)
[2022-03-06] MEDS: ENOXAPARIN 40 MG/0.4 ML SYRINGE SQ SCH (08:37)
[2022-03-06] MEDS: PREGABALIN 25 MG CAPSULE PO SCH (08:38)
[2022-03-06] MEDS: DOCUSATE SODIUM 100 MG CAPSULE PO SCH (08:38)
--- NOTE | 2022-03-06 09:27 | Internal Med Progress Note ---
SUBJECTIVE Subjective Patient information: Note initiated : 03/06/22 at 9:27 am Service Date, if different from initiated Date: [] Patient: Contreras Mccloud 76 y/o M admitted on 03/02/22 for cold/flu sx. Chief Complaint: [] Interval history: Mr. Mccloud is a 76 year old M history of bladder cancer status post cystectomy and ileal conduit, COPD, type 2 diabetes mellitus, recurrent UTI, essential hypertension, presenting with 5-day history of general weakness, loss of appetite, nausea with vomiting, suprapubic abdominal pain, shortness of breath, productive cough with davey and green sputum productions, and shaking chills. Moreover, he is complaining of 60 pounds weight loss over the 3 years. He has not been follow-up with oncology since the diagnosis of his bladder cancer 3 years ago. Over the past 5 days, he is complain of worsening of general weakness, loss of appetite, nausea with vomiting, shortness of breath with productive cough with davey and green sputum productions, shaking chills, and suprapubic abdominal pain currently graded at 3 out of 10 burning and constant. Vital signs significant for tachycardia and tachypnea. Labs significant for leukocytosis with WBC 12.8. Sodium level 128. Serum creatinine level 1.6. UA does not suggest the presence of urinary tract infections. Chest x-ray showing right basilar pulmonary parenchymal infiltrate consistent with pneumonia. Admission request was called for sepsis associated with pneumonia as well as for the investigations of weight loss/ failure to thrive. 03/03: COVID-negative. RSV positive. MRSA screening negative. Blood culture no growth to date. Serum creatinine level improved from 1.6-0.8. Patient is on room air. Patient has poor appetite. He is also commenting of back pain. He denies any abdominal pain around the ileal conduit site. He denies any subjective fever chills or diaphoresis. DC vancomycin due to negative MRSA. Continue Zosyn while waiting for culture result. Since kidney functions normalized, will order whole-body CT with cont rast to look for any sign of malignancy contributing to the unintentional weight loss and overall weakness. We will keep the IV fluid running for now due to poor oral intake as well as CT study with IV contrast. Physical and occupational therapies evaluation and treatments. 03/04: Afebrile overnight. Patient is on room air this morning. Blood culture no growth to date. Patient is NOT complaining of constipation, although he has only been passing gas but no BM. His appetite has been improving. He denies any abdominal pain around the ileal conduit site/ostomy site. He is c/o mild to moderate pain pain at baseline level. Continue Zosyn while waiting for culture results. Saline lock the patient's. MiraLAX, Colace suppository, Fleet enema PRN constipation. Add Megace to promote appetite. Physical and occupational therapies evaluation and treatments. 03/05 No overnight event or new complaints. Patient feeling better ready to go home. Discharge to rehab. Review of Systems: denies headache/fever/chills/nausea/vomiting/chest or abdominal pain/cough/dyspnea/diarrhea. Otherwise see above. Constitutional Vitals: Vital Signs Temp Pulse Resp BP Pulse Ox O2 Del Method 98.0 F 90 16 127/82 96 03/06/22 08:00 03/06/22 07:53 03/06/22 07:53 03/06/22 07:53 03/06/22 07:53 03/06/22 07:53 Period Temp Pulse Resp BP Sys/Wilson Pulse Ox O2 Del Method O2 Flow Rate Last 24 Hr 97.9 F-98.3 F 90-110 - 113-146/66-96 94-97 Room Air-Room Air Intake and Output 03/05/22 03/06/22 03/06/22 19:59 03:59 11:59 Intake Total 400 Output Total 400 Balance -400 400 Weight 78.018 kg Intake & Output: Intake & Output 03/05/22 03/06/22 03/06/22 19:59 03:59 11:59 Intake Total 400 Output Total 400 Balance -400 400 Weight 78.018 kg Intake: Oral 400 Output: Void Amount 400 Other: Urine Color Urostomy Yellow # Voids 1 # Bowel Movements 0 OBJ DATA Labs CBC & Chem 7: 03/04/22 05:15 03/04/22 05:15 Labs: Abnormal Lab Results 03/04/22 03/04/22 05:15 05:15 RBC 3.22 L Hgb 10.4 L Hct 29.7 L Immature Gran % (Auto) 3.6 H Lymph % (Auto) 13.2 L Lymph # (Auto) 0.92 L Immature Gran # 0.25 H Sodium 132 L Glucose 124 H Albumin 2.7 L Albumin/Globulin Ratio 0.8 L Meds: Medications Acetaminophen (Acetaminophen 325 Mg Tablet) 650 mg PO Q6HP PRN; Protocol PRN Reason: Per Pain Protocol/Fever > 101 Last Admin: 03/02/22 19:58 Dose: 650 mg Hydrocodone Bitart/Acetaminophen (Hydrocodone/Apap 7.5/325mg Tablet) 1 tab PO Q4-6HP PRN PRN Reason: pain Last Admin: 03/06/22 04:20 Dose: 1 tab Albuterol/Ipratropium (Ipratropium/Albuterol 3 Ml Ampul.Neb) 3 ml NEB Q4HRT PRN PRN Reason: Wheezing Last Admin: 03/04/22 22:23 Dose: 3 ml Bisacodyl (Bisacodyl 10 Mg Supp.Rect) 10 mg RI DAILYP PRN PRN Reason: Constipation Cefepime HCl (Cefepime 2 Gm Vial) 2 gm IV Q12H [facility] Last Admin: 03/05/22 21:23 Dose: 2 gm Dextrose (Dextrose 50% 50 Ml Vial) 0 ml IV UD PRN PRN Reason: Per Sliding Scale Diagnostic Test (Pha) (Accu-Chek 1 Each Strip) 1 each FS ACHS [facility] Last Admin: 03/06/22 07:51 Dose: 1 each Docusate Sodium (Docusate Sodium 100 Mg Capsule) 100 mg PO BID [facility] Last Admin: 03/06/22 08:38 Dose: 100 mg Enoxaparin Sodium (Enoxaparin 40 Mg/0.4 Ml Syringe) 40 mg SQ DAILY [facility] Last Admin: 03/06/22 08:37 Dose: 40 mg Glucose (Dextrose 31 Gm Oral.Susp) 15 gm PO PRN PRN PRN Reason: Hypoglycemia Guaifenesin (Guaifenesin/Dextromethorphan Oral Naomi) 10 ml PO Q4HP PRN PRN Reason: Cough Last Admin: 03/06/22 00:14 Dose: 10 ml Insulin Human Lispro (Insulin Lispro 1 Unit/0.01 Ml Unit) 0 unit SQ ACHS [facility]; Protocol Last Admin: 03/06/22 07:51 Dose: Not Given Megestrol Acetate (Megestrol Acetate 400 Mg/10 Ml Udc) 400 mg PO DAILY [facility] Last Admin: 03/06/22 08:37 Dose: 400 mg Methocarbamol (Methocarbamol 500 Mg Tablet) 500 mg PO Q6HP PRN PRN Reason: pain Last Admin: 03/06/22 04:20 Dose: 500 mg Morphine Sulfate (Morphine 4 Mg/Ml Vial) 4 mg IV Q4HP PRN; Protocol PRN Reason: Per Pain Protocol Last Admin: 03/06/22 00:13 Dose: 4 mg Ondansetron HCl (Ondansetron 4 Mg/2 Ml Vial) 4 mg IV Q6HP PRN PRN Reason: Nausea And Vomiting Last Admin: 03/03/22 03:44 Dose: 4 mg Polyethylene Glycol (Polyethylene Glycol 3350 17 Gm Packet) 17 gm PO DAILYP PRN PRN Reason: Constipation Last Admin: 03/04/22 11:48 Dose: 17 gm Pregabalin (Pregabalin 25 Mg Capsule) 50 mg PO TID PRUDENCIO Last Admin: 03/06/22 08:38 Dose: 50 mg Senna (Sennosides 1 Tablet) 2 tab PO HS [facility] Last Admin: 03/05/22 21:22 Dose: 2 tab Sodium Biphosphate/Sodium Phosphate (Fleets Adult Enema) 1 dose RI DAILYP PRN PRN Reason: Constipation Sodium Chloride (0.9 % Sodium Chloride 10 Ml Syringe) 10 ml IV Q8 [facility] Last Admin: 03/06/22 04:22 Dose: 10 ml Trazodone HCl (Trazodone Hcl 50 Mg Tablet) 25 mg PO HSP PRN PRN Reason: Insomnia A/P Narrative A/P Narrative: Assessment and Plans: *Pneumonia with Sepsis: -Serial lactic acid, Procalcitonin 0.52 on admit, leukocytosis resolved -Cephein PCR: CoVID negative, RSV positive -Blood culture, no growth to date, MRSA screening negative -cbc w/ auto diff in the morning to trend WBC -Supplemental oxygen therapy prn -Continue Cefepime while monitoring for culture results *RSV infection: Isolation: droplet, Supplemental oxygen therapy *Adult failure to thrive: -DDx include malignancy, new versus unresolved bladder cancer -Whole-body CT with IV contrast negative for tumors -[employer] referral -Megace 400mg PO daily *h/o bladder cancer: Whole-body CT with IV contrast-->no suspicious lesions suggestive of malignancy *HTN: *DM2: -Hold any oral hypoglycemics, d/c Insulin NPH, SSI *COPD( ): DuoNEB NEB PRN wheezing or shortness of breath *YOVANI: -Kidney functions improved -Avoid nephrotoxic agents, Saline lock -CMP in the morning to trend kidney functions *Anemia: *ppx: Lovenox Time Spent With Patient Time: Total time spent is greater than 50% in coordination of care (as documented) at patient's floor/unit and/or counseling patient: QUALITY Stroke Symptom Onset Unknown: No VTE Deep Vein Thrombosis/Pulmonary Embolism Present on Admission: No
[2022-03-06] MEDS: CEFEPIME 2 GM VIAL IV SCH (10:01)
== END 2022-03-06 13:30 | DRG 871 ==
LOC: ED 09:25 → MEDSUR 14:16
PROVIDERS: ADMIT Internal Medicine Sports Medicine; ATTEND Internal Medicine